=== PATIENT | male | born 1980 ===

== ENCOUNTER 2017-04-15 18:46 | Inpatient (IN) | payer MEDICAID, OTHER ==
[2017-04-15 18:55] VITALS: BMI 33.4
[2017-04-15] MEDS ORDERED: Albuterol-Ipratrop 3 mg / 0.5 (3 ml) UD IH STA (19:02)
[2017-04-15] MEDS ORDERED: cefTRIAXone 1 gm 1 GM/100 ML BAG IVPB STA (19:04)
[2017-04-15 19:16] LABS: BASO # 0.03 K/mm3 (0.0-2.0); BASO % 0.4 % (0.0-3.0); EOS # 0.1 (0.0-0.7); EOS % 0.7 % (1.5-5.0); GRAN # 4.28 (1.4-6.5); HEMOGLOBIN 14.5 g/dL (14.0-18.0); LYMPH # 1.8 (1.2-3.4); LYMPH % 25.7 % (22.0-35.0); MEAN CORPUSCULAR HEMOGLOBIN 31.7 pg (25.0-35.0); MEAN CORPUSCULAR HGB CONC 34.1 g/dl (31.0-37.0); MEAN PLATELET VOLUME 10.4 fl (7.0-11.0); MONO # 0.8 (0.1-0.6); MONO % 11.2 % (1.0-6.0); RBC 4.57 10^6/uL (3.5-6.1); RED CELL DISTRIBUTION WIDTH 12.9 % (11.5-14.5); WHITE BLOOD COUNT 6.9 10^3/ul (4.5-11.0)
--- NOTE | 2017-04-15 19:16 | ED PDOC ---
Arrival/HPI - General Historian: Patient, EMS, Other (calin) EM Caveat: Acuity of Condition - History of Present Illness Time/Duration: Prior to Arrival Symptom Onset: Sudden - General Chief Complaint: Substance Abuse Time Seen by Provider: 04/15/17 18:49 - History of Present Illness Narrative History of Present Illness (Text): 04/15/17 19:13 Patient is a 36 yo male presents to ED via ALS ambulance with history of possible heroin overdose. History obtained by faheemance, reportedly patient has past history of drug abuse, approximately half hour ago she returned to her room and found that patient was unresponsive. Medics state that upon their initial evaluation the patient had agonal respirations and was not responsive. Although patient's fiance "started CPR before we got there" the patient reportedly had strong pulses upon arrival of ALS. Patient was given Narcan intransally "4 times" with response as per medics. Patient upon arrival to the ED states he used "two bags of heroin" and currently feels some dizziness and bodyaches. He denies recent illnesses. Admits that in past he has also abused PCP but currently denies this. (Michelet Castro ) Past Medical History - Infectious Disease Hx of Infectious Diseases: None - Psychiatric Hx Substance Use: Yes - Anesthesia Hx Anesthesia: No Family/Social History Smoking Status: Current Some Days Smoker Hx Alcohol Use: No Hx Substance Use: Yes Substance used: heroine Allergies/Home Meds Allergies/Adverse Reactions: Allergies No Known Allergies Allergy (Verified 04/15/17 18:49) Home Medications: Home Meds Medication Instructions Recorded Confirmed No Known Home Med 04/15/17 04/15/17 Review of Systems - Review of Systems Systems not reviewed;Unavailable: Acuity of Condition Constitutional: absent: Fevers (denies fevers prior to ER visit) ENT: absent: Hearing Changes, Sore Throat, Rhinorrhea Respiratory: SOB, Cough Cardiovascular: absent: Chest Pain, Edema, BHAKTA Gastrointestinal: absent: Abdominal Pain, Constipation, Diarrhea, Nausea, Vomiting Genitourinary Male: absent: Urinary Output Changes Musculoskeletal: Myalgias Skin: absent: Rash Neurological: Dizziness. absent: Headache, Focal Weakness, Gait Changes Endocrine: absent: Polyuria Hemo/Lymphatic: absent: Easy Bleeding Psychiatric: absent: Depression, Suicidal Ideation Physical Exam Vital Signs Reviewed: Yes Temperature: Febrile Blood Pressure: Hypertensive Pulse: Tachycardic Respiratory Rate: Tachypneic Appearance: Positive for: Ill-Appearing Pain Distress: Mild Mental Status: Positive for: Alert and Oriented X 3 Finger Stick Blood Glucose: 254 - Physical Exam Narrative Physical Exam (Text): 04/15/17 19:19 Head: Atraumatic. Normocephalic. Eyes: PERRL. EOMI. Conjunctivae are injected. ENT: Mucous membranes are moist and intact. Oropharynx is clear and symmetric. No tongue laceration. Neck: Supple. Full ROM. No JVD. No lymphadenopathy. Cardiovascular: Tachycardic. Systolic murmur. Distal pulses intact. Pulmonary/Chest: Tachypneic. Chest wall nontender. Mild expiratory wheezing. Abdominal: Soft but mildly non-distended. There is no tenderness. No rebound , guarding, or rigidity. No organomegaly. Good bowel sounds. Back: No CVA tenderness. No midline tenderness. Paraspinal tenderness. Extremities: No edema. No cyanosis. No clubbing. Full range of motion in all extremities. No calf tenderness. Skin: Skin is warm and dry. No petechiae. No purpura. No lacerations. Neurological: Alert, awake, and answering questions appropriately. No slurred speech. No focal motor or sensory deficits. Psychiatric: Good eye contact. Normal interaction, affect, and behavior. Denies suicidal or homicidal ideation. (Michelet Castro) Vital Signs Temp Pulse Resp BP Pulse Ox 04/15/17 23:39 96 H 16 121/73 100 04/15/17 22:59 102.6 F H 04/15/17 22:00 102 H 19 113/65 98 04/15/17 20:59 107 H 19 109/63 98 04/15/17 20:33 110 H 20 117/73 98 04/15/17 19:45 114 H 21 125/75 100 04/15/17 18:46 100.7 F H 132 H 22 122/86 100 Medical Decision Making - Critical Care Critical Care Minutes: 30 minutes - EKG Interpretation Interpreted by ED Physician: Yes Type: 12 lead EKG ED Course and Treatment: 04/15/17 19:24 Patient upon arrival to ED is present with ALS and [facility] personnel, history obtained from medics and fiance. Patient upon arrival is breathing spontaneously and alert and answering questions. He had received Narcan intranasally with return of respirations. ALS states patient was subsequently bagged and oxygen saturations maintained. At no point with prehospital personnel was patient pulseless, despite fiance initiating CPR. Patient denies recent illnesses. He is found to be febrile in ED. Will obtain ABG with lactate, blood cultures, and initia iv antibiotics due to risk of aspiration. Re-evaluatd at 19:15 his heart rate is 115, he is alert, on oxygen saturations are 99%. Abdomen soft and nontender. No acute head or neck trauma noted. Will continue monitoring and serial exams. 04/15/17 20:25 Re-evaluation. States he feels less shaky, Heart rate 110. No respiratory distress. Secondary exam he has palpable lower lumbar pain, no pain with straight leg testing. No deformity noted. No saddle anesthesia. Motor and sensory exam intact. Abnormal labs reviewed with patient including elevated CPK as well as renal insufficiency. Suspect secondary to heroin overdose. IV fluids ordered. Patient will be admitted to hospitalist. (Michelet Castro) - Lab Interpretations Lab Results: 04/15/17 19:00 04/15/17 19:00 Lab Results 04/15/17 19:50: pCO2 45, pO2 72.0 L, HCO3 23.2, ABG pH 7.32 L, ABG Total CO2 24.6, ABG O2 Saturation 97.0, ABG Base Excess -3.1 L, ABG Potassium 2.5 L*, Glucose 115 H, Lactate 1.2, FiO2 100.0, Sodium 141.0, Chloride 108.0 H, Arterial Blood Potassium 2.5 L* 04/15/17 19:04: Influenza Typ A,B (EIA) Negative for flu a/b 04/15/17 19:00: Phosphorus 7.5 H, Magnesium 2.5 H 04/15/17 19:00: Alcohol, Quantitative < 10 04/15/17 19:00: Salicylates < 1 L, Acetaminophen < 10.0 L 04/15/17 19:00: Sodium 135, Potassium 4.3, Chloride 91 L, Carbon Dioxide 27, Anion Gap 21 H, BUN 29 H, Creatinine 1.6 H, Est GFR ( Amer) 59, Est GFR ( Non-Af Amer) 49, Random Glucose 287 H, Calcium 9.2, Total Bilirubin 1.0, AST 95 H, ALT 113 H, Alkaline Phosphatase 59, Lactate Dehydrogenase 802 H, Total Creatine Kinase 2805 H, CK-MB (CK-2) 5.1 H, CK-MB (CK-2) % 0.2 L, Troponin I < 0.01, Total Protein 8.0, Albumin 4.4, Globulin 3.7, Albumin/Globulin Ratio 1.2 04/15/17 19:00: PT 11.7, INR 1.03, APTT 22.0 L 04/15/17 19:00: WBC 6.9, RBC 4.57, Hgb 14.5, Hct 42.5, MCV 93.0, MCH 31.7, MCHC 34.1, RDW 12.9, Plt Count 155, MPV 10.4, Gran % 62.0, Lymph % (Auto) 25.7, [place] % (Auto) 11.2 H, Eos % (Auto) 0.7 L, Baso % (Auto) 0.4, Gran # 4.28, Lymph # ( Auto) 1.8, [place] # (Auto) 0.8 H, Eos # (Auto) 0.1, Baso # (Auto) 0.03 - RAD Interpretation Narrative RAD Interpretations (Text): 04/16/17 14:41 HISTORY: respiratory distress, opiate overdose COMPARISON: No prior. FINDINGS: LUNGS: No active pulmonary disease. PLEURA: No significant pleural effusion identified, no pneumothorax apparent. CARDIOVASCULAR: Normal. OSSEOUS STRUCTURES: No significant abnormalities. VISUALIZED UPPER ABDOMEN: Normal. OTHER FINDINGS: There is a curvilinear line across the upper artery right mino thorax. There are pulmonary markings beyond this. If pneumothorax is suspected, repeat radiograph is recommended. The finding is marked on the study for review. IMPRESSION: Probably no active disease. Please see report for details. Per institutional protocol the study has been marked for review by the physician assistant loan processor. (Jackeline Bella) Radiology Orders: 04/15/17 19:00 CHEST PORTABLE [RAD] Stat - EKG Interpretation EKG Interpretation (Text): 04/15/17 19:28 EKG at 18:49 sinus tachycardia rate of 129 (Michelet Castro) - Medication Orders Current Medication Orders: Acetaminophen (Tylenol 325mg Tab) 650 mg PO Q4 PRN PRN Reason: Fever >100.4 F Albuterol/Ipratropium (Duoneb 3 Mg/0.5 Mg (3 Ml) Ud) 3 ml IH [id number] [facility] Last Admin: 04/16/17 13:59 Dose: 3 ml Heparin Sodium (Porcine) (Heparin) 5,000 units SC Q12 GALE PRN Reason: Protocol Last Admin: 04/16/17 09:30 Dose: 5,000 units Subcutaneous Administrations Document 04/16/17 09:30 KL (Rec: 04/16/17 09:30 KL [id number]) Injection Site MAR Injection Site Right Abdomen Charges for Administration # of Subcutaneous Administrations 1 Sodium Chloride (Sodium Chloride 0.9%) 1,000 mls @ 200 mls/hr IV .Q5H [facility] Last Admin: 04/16/17 11:52 Dose: 200 mls/hr eMAR Start Stop Document 04/16/17 11:52 KL (Rec: 04/16/17 11:52 KL [id number]) Intravenous Solution Start Date 04/16/17 Start Time 11:30 Ampicillin Sodium/Sulbactam (Sodium 3 gm/ Sodium Chloride) 100 mls @ 200 mls/ hr IVPB Q6 GALE PRN Reason: Protocol Last Admin: 04/16/17 11:50 Dose: 200 mls/hr eMAR Start Stop Document 04/16/17 11:50 KL (Rec: 04/16/17 11:51 KL [id number]) Intravenous Solution Start Date 04/16/17 Start Time 11:51 Insulin Human Lispro (Humalog Med) 0 units SC ACHS GALE PRN Reason: Protocol Last Admin: 04/16/17 11:50 Dose: Not Given Non-Admin Reason: Patient Refused MAR Blood Glucose Document 04/16/17 11:50 KL (Rec: 04/16/17 11:50 KL [id number]) Blood Glucose Finger Stick Blood Glucose (70-120) 151 Pantoprazole Sodium (Protonix Inj) 40 mg IVP DAILY [facility] Last Admin: 04/16/17 09:29 Dose: 40 mg IVP Administration Document 04/16/17 09:29 KL (Rec: 04/16/17 09:30 KL [id number]) Charges for Administration # of IVP Administrations 1 Discontinued Medications Albuterol/Ipratropium (Duoneb 3 Mg/0.5 Mg (3 Ml) Ud) 3 ml IH STAT STA Stop: 02/09/18 19:03 Last Admin: 04/15/17 19:22 Dose: 3 ml Ceftriaxone Sodium (Rocephin 1 Gram Ivpb) 1 gm in 100 mls @ 200 mls/hr IVPB ONCE STA PRN Reason: Protocol Stop: 04/15/17 19:33 Last Admin: 04/15/17 19:22 Dose: 200 mls/hr eMAR Start Stop Document 04/15/17 19:22 CNR (Rec: 04/15/17 19:22 CNR [id number]) Intravenous Solution Start Date 04/15/17 Start Time 19:22 End Date 04/15/17 End time 19:52 Total Infusion Time 30 Sodium Chloride (Sodium Chloride 0.9%) 1,000 mls @ 1,000 mls/hr IV .Q1H STA Stop: 04/15/17 20:41 Last Admin: 04/15/17 19:55 Dose: 1,000 mls/hr eMAR Start Stop Document 04/15/17 19:55 CNR (Rec: 04/15/17 19:55 CNR [id number]) Intravenous Solution Start Date 04/15/17 Start Time 19:55 Sodium Chloride (Sodium Chloride 0.9%) 1,000 mls @ 1,000 mls/hr IV .Q1H STA Stop: 04/15/17 22:34 Last Admin: 04/15/17 21:45 Dose: 1,000 mls/hr eMAR Start Stop Document 04/15/17 21:45 CNR (Rec: 04/15/17 21:45 CNR [id number]) Intravenous Solution Start Date 04/15/17 Start Time 21:45 Sodium Chloride (Sodium Chloride 0.9%) 1,000 mls @ 1,000 mls/hr IV .Q1H GALE Stop: 04/15/17 22:44 Last Admin: 04/15/17 22:52 Dose: 1,000 mls/hr eMAR Start Stop Document 04/15/17 22:52 CNR (Rec: 04/15/17 22:52 CNR [id number]) Intravenous Solution Start Date 04/15/17 Start Time 22:52 Methylprednisolone (Solu-Medrol) 60 mg IVP STAT STA Stop: 04/15/17 23:17 Last Admin: 04/15/17 23:30 Dose: 60 mg IVP Administration Document 04/15/17 23:30 CNR (Rec: 04/15/17 23:30 CNR [id number]) Charges for Administration # of IVP Administrations 1 Disposition/Present on Arrival - Present on Arrival History of DVT/PE: No History of Uncontrolled Diabetes: No Urinary Catheter: No History of Decub. Ulcer: No History Surgical Site Infection Following: None - Disposition Disposition: HOSPITALIZED
[2017-04-15 19:27] LABS: ACETAMINOPHEN < 10.0 ug/ml (10.0-20.0); SALICYLATE < 1 mg/dL (2.0-20.0)
[2017-04-15 19:35] LABS: ALB/GLOB RATIO 1.2 (1.1-1.8); ALBUMIN 4.4 g/dL (3.0-4.8); ALT/SGPT 113 U/L (7-56); AST/SGOT 95 U/L (17-59); BLOOD UREA NITROGEN 29 mg/dL (7-21); CALCIUM 9.2 mg/dL (8.4-10.5); GFR AFRICAN-AMERICAN 59; GFR NON-AFRICAN AMERICAN 49
[2017-04-15 19:39] LABS: TROPONIN I < 0.01 ng/mL
[2017-04-15 19:42] LABS: INR 1.03 (0.93-1.08); PROTHROMBIN TIME 11.7 SECONDS (9.4-12.5)
[2017-04-15] MEDS ORDERED: Sodium Chloride 0.9% 1,000 ML IV STA ×2 (19:42→21:35)
[2017-04-15 19:58] LABS: CK MB% 0.2 % (2.5-3.0); CK-MB 5.1 ng/mL (0.0-3.6)
[2017-04-15 20:04] LABS: ARTERIAL BLOOD GAS HCO3 23.2 mmol/L (21-28); ARTERIAL BLOOD GAS PCO2 45 mm/Hg (35-45); ARTERIAL BLOOD GAS PH 7.32 (7.35-7.45); ARTERIAL BLOOD GAS TCO2 24.6 mmol.L (22-28)
--- NOTE | 2017-04-15 21:44 | CP.PCM.HP ---
History of Present Illness - History of Present Illness History of Present Illness: 36 year old male with past medical history of drug abuse brought in by ambulance after being found unconscious by his fiance at home s/p heroine use. History obtained bedside by patients hieu. Hieu states around 6:30 pm today she was in the living room when she heard a "thud" from the bedroom. Prior to that she had heard other noises but did not think anything of it. When she went to the bedroom she found her fiance slumped over between the bed and the dresser. She states the patient did not fall onto the floor fully or hit his head. She states the patient was unresponsive. She called 911 and proceeded to perform chest compressions. Ambulance arrived patient was given narcan in field and brought into the hospital. Patient was arousable with sternal rub but appears somnolent. He states he used to bags of heroine, last use of heroine before this was a "while ago". Patient does recall what happened. Patient denies any chest pain, shortness of breath, headache, nausea, vomiting, fever, chills, cough, or any other complaints at this time. PMH: denies PSH: denies Allergies: NKDA Meds: none Social: pack a day tobacco for past 20 years, social alcohol use, admits to heroine, crack and cocaine use Family hx: denies Present on Admission - Present on Admission Any Indicators Present on Admission: No Review of Systems - Constitutional Constitutional: absent: Anorexia, Chills, Fever - EENT Eyes: absent: Blurred Vision, Change in Vision Nose/Mouth/Throat: Epistaxis. absent: Nasal Congestion, Nasal Discharge - Cardiovascular Cardiovascular: absent: Chest Pain, Dyspnea - Respiratory Respiratory: absent: Cough, Dyspnea, Chest Congestion, Excessive Mucous Production - Gastrointestinal Gastrointestinal: absent: Abdominal Pain, Diarrhea, Nausea, Vomiting - Musculoskeletal Musculoskeletal: absent: Arthralgias, Back Pain, Numbness, Tingling - Integumentary Integumentary: absent: Swelling, Wounds - Neurological Neurological: absent: Disequilibrium, Dizziness, Numbness, Focal Weakness, Memory Loss, Syncope, Weakness Past Patient History - Infectious Disease Hx of Infectious Diseases: None - Past Social History Smoking Status: Current Some Days Smoker - PSYCHIATRIC Hx Substance Use: Yes - ANESTHESIA Hx Anesthesia: No Meds Allergies/Adverse Reactions: Allergies Allergy/AdvReac Type Severity Reaction Status Date / Time No Known Allergies Allergy Verified 04/15/17 18:49 Physical Exam - Constitutional Appears: No Acute Distress Additional comments: somnolent - Head Exam Head Exam: ATRAUMATIC, NORMAL INSPECTION, NORMOCEPHALIC - Eye Exam Eye Exam: Conjunctival injection, EOMI, PERRL - ENT Exam ENT Exam: Mucous Membranes Moist Additional comments: dried blood around nose - Neck Exam Neck exam: Negative for: Lymphadenopathy, Tenderness - Respiratory Exam Respiratory Exam: Wheezes Additional comments: tachypnic - Cardiovascular Exam Cardiovascular Exam: Tachycardia, +S1, +S2 - GI/Abdominal Exam GI & Abdominal Exam: Normal Bowel Sounds. absent: Distended, Tenderness - Extremities Exam Extremities exam: Positive for: pedal pulses present. Negative for: pedal edema - Neurological Exam Neurological exam: Alert, Oriented x3 - Skin Skin Exam: Normal Color Results - Vital Signs Recent Vital Signs: Last Vital Signs Temp 100.7 F H 04/15/17 18:46 Pulse 132 H 04/15/17 18:46 Resp 22 04/15/17 18:46 BP 122/86 04/15/17 18:46 Pulse Ox 100 04/15/17 18:46 - Labs Result Diagrams: 04/15/17 19:00 04/15/17 19:00 Labs: Laboratory Results - last 24 hr 04/15/17 04/15/17 04/15/17 19:00 19:00 19:00 WBC 6.9 RBC 4.57 Hgb 14.5 Hct 42.5 MCV 93.0 MCH 31.7 MCHC 34.1 RDW 12.9 Plt Count 155 MPV 10.4 Gran % 62.0 Lymph % (Auto) 25.7 [place] % (Auto) 11.2 H Eos % (Auto) 0.7 L Baso % (Auto) 0.4 Gran # 4.28 Lymph # (Auto) 1.8 Arthur # (Auto) 0.8 H Eos # (Auto) 0.1 Baso # (Auto) 0.03 PT 11.7 INR 1.03 APTT 22.0 L pCO2 pO2 HCO3 ABG pH ABG Total CO2 ABG O2 Saturation ABG Base Excess ABG Potassium Glucose Lactate FiO2 Sodium 135 Potassium 4.3 Chloride 91 L Carbon Dioxide 27 Anion Gap 21 H BUN 29 H Creatinine 1.6 H Est GFR ( Amer) 59 Est GFR (Non-Af Amer) 49 Random Glucose 287 H Calcium 9.2 Total Bilirubin 1.0 AST 95 H ALT 113 H Alkaline Phosphatase 59 Lactate Dehydrogenase 802 H Total Creatine Kinase 2805 H CK-MB (CK-2) 5.1 H CK-MB (CK-2) % 0.2 L Troponin I < 0.01 Total Protein 8.0 Albumin 4.4 Globulin 3.7 Albumin/Globulin Ratio 1.2 Arterial Blood Potassium Salicylates Acetaminophen Alcohol, Quantitative Influenza Typ A,B (EIA) 04/15/17 04/15/17 04/15/17 19:00 19:00 19:04 WBC RBC Hgb Hct MCV MCH MCHC RDW Plt Count MPV Gran % Lymph % (Auto) Arthur % (Auto) Eos % (Auto) Baso % (Auto) Gran # Lymph # (Auto) Arthur # (Auto) Eos # (Auto) Baso # (Auto) PT INR APTT pCO2 pO2 HCO3 ABG pH ABG Total CO2 ABG O2 Saturation ABG Base Excess ABG Potassium Glucose Lactate FiO2 Sodium Potassium Chloride Carbon Dioxide Anion Gap BUN Creatinine Est GFR ( Amer) Est GFR (Non-Af Amer) Random Glucose Calcium Total Bilirubin AST ALT Alkaline Phosphatase Lactate Dehydrogenase Total Creatine Kinase CK-MB (CK-2) CK-MB (CK-2) % Troponin I Total Protein Albumin Globulin Albumin/Globulin Ratio Arterial Blood Potassium Salicylates < 1 L Acetaminophen < 10.0 L Alcohol, Quantitative < 10 Influenza Typ A,B (EIA) Negative for flu a/b 04/15/17 19:50 WBC RBC Hgb Hct MCV MCH MCHC RDW Plt Count MPV Gran % Lymph % (Auto) Arthur % (Auto) Eos % (Auto) Baso % (Auto) Gran # Lymph # (Auto) Arthur # (Auto) Eos # (Auto) Baso # (Auto) PT INR APTT pCO2 45 pO2 72.0 L HCO3 23.2 ABG pH 7.32 L ABG Total CO2 24.6 ABG O2 Saturation 97.0 ABG Base Excess -3.1 L ABG Potassium 2.5 L* Glucose 115 H Lactate 1.2 FiO2 100.0 Sodium 141.0 Potassium Chloride 108.0 H Carbon Dioxide Anion Gap BUN Creatinine Est GFR ( Amer) Est GFR (Non-Af Amer) Random Glucose Calcium Total Bilirubin AST ALT Alkaline Phosphatase Lactate Dehydrogenase Total Creatine Kinase CK-MB (CK-2) CK-MB (CK-2) % Troponin I Total Protein Albumin Globulin Albumin/Globulin Ratio Arterial Blood Potassium 2.5 L* Salicylates Acetaminophen Alcohol, Quantitative Influenza Typ A,B (EIA) Assessment & Plan - Assessment and Plan (Free Text) Assessment: 36 year old male with past medical history of drug abuse brought in by ambulance after being found unconscious by his fiance at home s/p heroine use. Plan: 1. Heroine Overdose -patient somnolent, opens eyes to sternal rub, oriented x3 -UDS pending -EKG pending official read, sinus tachycardia -VBG ph 7.32, repeat in AM -initial trop negative -Chest xray pending official read, no infiltrates or consolidation -blood cultures, urine cultures pending -seizure precautions -fall precautions -neuro checks -aspiration precautions -temp 100.7 -Unasyn to prevent infection from aspiration -EKG in AM -CMP in AM -continue to monitor mental status -mag and phosphate pending 2. Elevated LFTs -likely secondary to drug use -hepatitis panel pending -avoid hepatotoxic drugs 3. Elevated CK -CK 2805 -repeat in AM -likely secondary to drug overdose -2 L NS bolus -NS @200 -UA pending -continue to monitor GI/DVT -protonix -Heparin SC
[2017-04-15] MEDS ORDERED: Sodium Chloride 0.9% 1,000 ML IV SCH (21:45)
[2017-04-15 22:00] LABS: MAGNESIUM 2.5 mg/dL (1.7-2.2)
[2017-04-15 22:47] LABS: URINE BILIRUBIN NEGATIVE (NEGATIVE); URINE BLOOD NEGATIVE (NEGATIVE); URINE GLUCOSE (UA) 250 mg/dL (NEGATIVE); URINE LEUKOCYTE ESTERASE NEGATIVE Leu/uL (NEGATIVE); URINE NITRATE NEGATIVE (NEGATIVE); URINE PROTEIN 30 mg/dL (<30 mg/dL); URINE UROBILINOGEN 0.2 E.U./dL (<1 E.U./dL)
[2017-04-15] MEDS: Sodium Chloride 0.9% 1,000 ML IV SCH (22:49)
[2017-04-15 22:52] LABS: URINE APPEARANCE CLEAR (CLEAR); URINE COLOR YELLOW (YELLOW)
[2017-04-15 23:01] LABS: URINE BACTERIA MANY (NEG); URINE RBC 0 - 2 /hpf (0-2)
[2017-04-15] MEDS ORDERED: MethylPREDNISolone 40 mg Vial IVP STA (23:16)
[2017-04-15] MEDS: Albuterol-Ipratrop 3 mg / 0.5 (3 ml) UD IH SCH (23:30)
[2017-04-16] MEDS: Sodium Chloride 0.9% 1,000 ML IV SCH ×7 (00:18→23:07)
[2017-04-16] MEDS: Albuterol-Ipratrop 3 mg / 0.5 (3 ml) UD IH SCH ×6 (02:00→19:21)
[2017-04-16 08:14] LABS: GRAN % 88.8 % (50.0-68.0); HEMOGLOBIN 11.4 g/dL (14.0-18.0); LYMPH # 0.6 (1.2-3.4); MEAN CELL VOLUME 92.8 fl (80.0-105.0); MEAN CORPUSCULAR HEMOGLOBIN 30.4 pg (25.0-35.0); MEAN CORPUSCULAR HGB CONC 32.8 g/dl (31.0-37.0); MEAN PLATELET VOLUME 10.4 fl (7.0-11.0); MONO # 0.4 (0.1-0.6); MONO % 4.2 % (1.0-6.0); RBC 3.75 10^6/uL (3.5-6.1); RED CELL DISTRIBUTION WIDTH 13.3 % (11.5-14.5)
[2017-04-16 08:39] LABS: ALB/GLOB RATIO 1.1 (1.1-1.8); ALBUMIN 3.2 g/dL (3.0-4.8); ALT/SGPT 81 U/L (7-56); AST/SGOT 70 U/L (17-59); BLOOD UREA NITROGEN 19 mg/dL (7-21); CALCIUM 8.1 mg/dL (8.4-10.5); GFR AFRICAN-AMERICAN > 60; GFR NON-AFRICAN AMERICAN > 60
[2017-04-16 09:12] LABS: CK-MB 3.6 ng/mL (0.0-3.6)
[2017-04-16] MEDS: Insulin Lispro (humaLOG) MEDIUM Coverage SC SCH ×4 (09:21→23:10)
--- NOTE | 2017-04-16 10:08 | RAD ---
HISTORY: respiratory distress, opiate overdose COMPARISON: No prior. FINDINGS: LUNGS: No active pulmonary disease. PLEURA: No significant pleural effusion identified, no pneumothorax apparent. CARDIOVASCULAR: Normal. OSSEOUS STRUCTURES: No significant abnormalities. VISUALIZED UPPER ABDOMEN: Normal. OTHER FINDINGS: There is a curvilinear line across the upper artery right mino thorax. There are pulmonary markings beyond this. If pneumothorax is suspected, repeat radiograph is recommended. The finding is marked on the study for review. IMPRESSION: Probably no active disease. Please see report for details. Per institutional protocol the study has been marked for review by the physician real estate assistant.
[2017-04-16 12:18] LABS: HEPATITIS B SURFACE AG Negative (NEGATIVE)
[2017-04-16 12:24] LABS: HEPATITIS A IGM NEGATIVE (NEGATIVE); HEPATITIS B CORE AB NEGATIVE (NEGATIVE)
[2017-04-16 14:25] LABS: HEPATITIS C ANTIBODY REACTIVE (NEGATIVE)
--- NOTE | 2017-04-16 16:39 | CARD ---
APPROVED REPORT EKG Measurement Heart [id number] <Conclusion> Normal sinus rhythm Normal ECG
--- NOTE | 2017-04-16 16:48 | CARD ---
APPROVED REPORT EKG Measurement Heart [id number] <Conclusion> Sinus tachycardia Otherwise normal ECG
--- NOTE | 2017-04-16 16:56 | CP.PCM.PN ---
<Edilson Barton - Last Filed: 04/16/17 16:53> Subjective - Date & Time of Evaluation Date of Evaluation: 04/16/17 Time of Evaluation: 16:53 - Subjective Subjective: Medicine Progress Note: Patient seen and assessed at bedside. No acute events since admission reported by nursing staff or patient. Patient is without complaints at this time, including fever, chills, headache, chest pain, palpitations, SOB, cough, abdominal pain, N/V/D/C, urinary symptoms, or any numbness/tingling/weakness of any extremity. Objective - Vital Signs/Intake and Output Vital Signs (last 24 hours): Temp Pulse Resp BP Pulse Ox 99.3 F 78 16 105/57 L 95 04/16/17 12:00 04/16/17 12:00 04/16/17 12:00 04/16/17 12:00 04/16/17 06:00 Intake and Output: 04/16/17 04/16/17 06:59 18:59 Intake Total 1560 Output Total 1075 Balance 485 - Medications Medications: Current Medications Acetaminophen (Tylenol 325mg Tab) 650 mg PO Q4 PRN PRN Reason: Fever >100.4 F Albuterol/Ipratropium (Duoneb 3 Mg/0.5 Mg (3 Ml) Ud) 3 ml IH [id number] [facility] Last Admin: 04/16/17 13:59 Dose: 3 ml Heparin Sodium (Porcine) (Heparin) 5,000 units SC Q12 GALE PRN Reason: Protocol Last Admin: 04/16/17 09:30 Dose: 5,000 units Sodium Chloride (Sodium Chloride 0.9%) 1,000 mls @ 200 mls/hr IV .Q5H [facility] Last Admin: 04/16/17 11:52 Dose: 200 mls/hr Ampicillin Sodium/Sulbactam (Sodium 3 gm/ Sodium Chloride) 100 mls @ 200 mls/ hr IVPB Q6 GALE PRN Reason: Protocol Last Admin: 04/16/17 11:50 Dose: 200 mls/hr Insulin Human Lispro (Humalog Med) 0 units SC ACHS GALE PRN Reason: Protocol Last Admin: 04/16/17 11:50 Dose: Not Given Pantoprazole Sodium (Protonix Inj) 40 mg IVP DAILY [facility] Last Admin: 04/16/17 09:29 Dose: 40 mg - Labs Labs: 04/16/17 07:00 04/16/17 07:00 PT 11.7 SECONDS (9.4-12.5) 04/15/17 19:00 INR 1.03 (0.93-1.08) 04/15/17 19:00 APTT 22.0 Seconds (25.1-36.5) L 04/15/17 19:00 - Constitutional Appears: Non-toxic, No Acute Distress - Head Exam Head Exam: ATRAUMATIC, NORMAL INSPECTION, NORMOCEPHALIC - Eye Exam Eye Exam: EOMI, Normal appearance, PERRL - ENT Exam ENT Exam: Mucous Membranes Moist, Normal Exam - Neck Exam Neck Exam: Full ROM, Normal Inspection. absent: Lymphadenopathy - Respiratory Exam Respiratory Exam: Clear to Ausculation Bilateral, NORMAL BREATHING PATTERN - Cardiovascular Exam Cardiovascular Exam: REGULAR RHYTHM, +S1, +S2. absent: Murmur - GI/Abdominal Exam GI & Abdominal Exam: Soft, Normal Bowel Sounds. absent: Tenderness - Extremities Exam Extremities Exam: Full ROM, Normal Capillary Refill, Normal Inspection. absent : Calf Tenderness, Joint Swelling, Pedal Edema, Tenderness - Back Exam Back Exam: NORMAL INSPECTION - Neurological Exam Neurological Exam: Alert, Awake, CN II-XII Intact, Normal Gait, Oriented x3 - Psychiatric Exam Psychiatric exam: Normal Affect, Normal Mood - Skin Skin Exam: Dry, Intact, Normal Color, Warm Assessment and Plan - Assessment and Plan (Free Text) Assessment: 36 year old male with a past medical history significant for heroin abuse who was brought in by ambulance after being found unconscious by his fiance at home s/p heroine use. Plan: 1. Heroin Abuse s/p Heroin Overdose -Currently afebrile, HDS, alert and oriented to person, place, time and event -EKG showing NSR at 78bpm -HIV, UDS, repeat ABG, Blood and Urine cultures pending -Hepatitis C AB reactive, Viral RNA pending -Continue Unasyn for empiric coverage of aspiration PNA -Continue Duonebs [id number] -Continue Tylenol PRN for fever -Continue Neurochecks -Aspiration, Fall and Seizure precautions -ID consulted, all recommendations appreciated 2. Rhabdomyelitis -CK trending down and currently >1600 -Liver Enzymes and BUN/Cr trending down -Continue NS at 200mls/hr 3. Hyperglycemia -SSI-Med and Accuchecks ACHS GI Prophylaxis: Protonix DVT Prophylaxis: Heparin Patient seen and case discussed with attending, Dr. Giraldo. <Isabel Giraldo - Last Filed: 04/17/17 15:31> Objective - Vital Signs/Intake and Output Vital Signs (last 24 hours): Temp Pulse Resp BP Pulse Ox 99.3 F 84 20 123/70 95 04/17/17 13:01 04/17/17 12:00 04/17/17 12:00 04/17/17 12:00 04/17/17 06:00 Intake and Output: 04/17/17 04/17/17 06:59 18:59 Intake Total 2660 Output Total 3300 Balance -640 - Medications Medications: Current Medications Acetaminophen (Tylenol 325mg Tab) 650 mg PO Q4 PRN PRN Reason: Fever >100.4 F Last Admin: 04/17/17 12:01 Dose: 650 mg Albuterol/Ipratropium (Duoneb 3 Mg/0.5 Mg (3 Ml) Ud) 3 ml IH [id number] [facility] Last Admin: 04/17/17 11:37 Dose: 3 ml Guaifenesin (Robitussin) 100 mg PO Q4H PRN PRN Reason: Cough Last Admin: 04/17/17 02:29 Dose: 100 mg Heparin Sodium (Porcine) (Heparin) 5,000 units SC Q12 GALE PRN Reason: Protocol Last Admin: 04/17/17 09:55 Dose: 5,000 units Ampicillin Sodium/Sulbactam (Sodium 3 gm/ Sodium Chloride) 100 mls @ 200 mls/ hr IVPB Q6 GALE PRN Reason: Protocol Last Admin: 04/17/17 12:02 Dose: 200 mls/hr Sodium Chloride (Sodium Chloride 0.9%) 1,000 mls @ 100 mls/hr IV .Q10H [facility] Last Admin: 04/17/17 14:30 Dose: 100 mls/hr Insulin Human Lispro (Humalog Med) 0 units SC ACHS GALE PRN Reason: Protocol Last Admin: 04/17/17 12:02 Dose: Not Given Pantoprazole Sodium (Protonix Inj) 40 mg IVP DAILY [facility] Last Admin: 04/17/17 09:54 Dose: 40 mg - Labs Labs: 04/17/17 07:00 02/11/18 07:00 PT 11.7 SECONDS (9.4-12.5) 04/15/17 19:00 INR 1.03 (0.93-1.08) 04/15/17 19:00 APTT 22.0 Seconds (25.1-36.5) L 04/15/17 19:00 Attending/Attestation - Attestation I have personally seen and examined this patient.: Yes I have fully participated in the care of the patient.: Yes I have reviewed all pertinent clinical information, including history, physical exam and plan: Yes Notes (Text): 04/17/17 15:27 Patient was seen and examined with medical center director. 36 year old male with past medical history of drug abuse brought in by ambulance after being found unconscious by his fiance at home s/p heroine use. Mental status improved after Narcain.Patient is found to have Rhabdomylosis, fever likely due to aspiration Pneumonia and abnormal LFT, hepatitis panel is positive for hepatitric C.We will continue IV fluid, will follow up electrolyte, CK level and BUN and creatinin. We will continue Unasyn for aspiration Pneumonia.We will follow up cultures. We will watch for withdrawal. Prognosis is guarded.
--- NOTE | 2017-04-16 20:11 | CP.PCM.CON ---
History of Present Illness - History of Present Illness History of Present Illness: Infectious Disease Consultation: April 16, 2017 36 yo male with history of heroin abuse. At home the patient's fiance heard a loud thud from the bedroom and was found unresponsive and slumped over a space between the bed and the dresser. EMS administered Narcan in the field. PMHx: Denied PSHx: Denied Allergies: NKDA Social Hx: 1 ppd tobacco for 24 years Social EtOH Crack, Cocaine, and heroin use. Active Medications Acetaminophen (Tylenol 325mg Tab) 650 mg PO Q4 PRN PRN Reason: Fever >100.4 F Albuterol/Ipratropium (Duoneb 3 Mg/0.5 Mg (3 Ml) Ud) 3 ml IH [id number] [facility] Last Admin: 04/16/17 19:21 Dose: Not Given Heparin Sodium (Porcine) (Heparin) 5,000 units SC Q12 GALE PRN Reason: Protocol Last Admin: 04/16/17 09:30 Dose: 5,000 units Sodium Chloride (Sodium Chloride 0.9%) 1,000 mls @ 200 mls/hr IV .Q5H [facility] Last Admin: 04/16/17 17:40 Dose: 200 mls/hr Ampicillin Sodium/Sulbactam (Sodium 3 gm/ Sodium Chloride) 100 mls @ 200 mls/ hr IVPB Q6 GALE PRN Reason: Protocol Last Admin: 04/16/17 17:35 Dose: 200 mls/hr Insulin Human Lispro (Humalog Med) 0 units SC ACHS GALE PRN Reason: Protocol Last Admin: 04/16/17 17:36 Dose: Not Given Pantoprazole Sodium (Protonix Inj) 40 mg IVP DAILY [facility] Last Admin: 04/16/17 09:29 Dose: 40 mg Family Hx: none given ROS: Fevers on admission, AMS, LOC No chest pain, abdominal pain, melena, hematuria, hematemesis, hematochezia, depression, anxiety, diarrhea, headaches, dizziness. Past Patient History - Infectious Disease Hx of Infectious Diseases: None - Past Social History Smoking Status: Never Smoked - CARDIAC Hx Cardiac Disorders: No Hx Angina: No Hx Cardia Arrhythmia: No Hx Circulatory Problems: No Hx Congestive Heart Failure: No Hx Heart Murmur: No Hx Heart Transplant: No Hx Hypercholesterolemia: No Hx Hypertension: No Hx Internal Defibrillator: No Hx Mitral Valve Prolapse: No Hx Pacemaker: No Hx Peripheral Edema: No Hx Peripheral Vascular Disease: No - PULMONARY Hx Respiratory Disorders: No Hx Asthma: No Hx Bronchitis: No Hx Chronic Obstructive Pulmonary Disease (COPD): No Hx Emphysema: No Hx Pneumonia: No Hx Respiratory Aspiration: No Hx Respiratory Tract Infection: No Hx Sleep Apnea: No Hx Tuberculosis: No - NEUROLOGICAL Hx Neurological Disorder: No Hx Alzheimer's Disease: No HX Cerebrovascular Accident: No Hx Dementia: No Hx Dizziness: No Hx Meningitis: No Hx Migraine: No Hx Parkinson's Disease: No Hx Seizures: No Hx Transient Ischemic Attacks (TIA): No - HEENT Hx HEENT Problems: No Hx Blind: No Hx Cataracts: No Hx Deafness: No Hx Difficulty Chewing: No Hx Epistaxis: No Hx Glaucoma: No Hx Macular Degeneration: No - RENAL Hx Chronic Kidney Disease: No Hx Dialysis: No Hx Kidney Stones: No Hx Neurogenic Bladder: No Hx Pyelonephritis: No Hx Renal (Kidney) Cancer: No Hx Renal Failure: No - ENDOCRINE/METABOLIC Hx Endocrine Disorders: No Hx Adrenal Cancer: No Hx Diabetes Insipidus: No Hx Diabetes Mellitus Type 1: No Hx Diabetes Mellitus Type 2: No Hx Hyperthyroidism: No Hx Hypothyroidism: No Hx Systemic Lupus Erythematosus: No - HEMATOLOGICAL/ONCOLOGICAL Hx Blood Disorders: No Hx AIDS: No Hx Anemia: No Hx Cancer: No Hx Chemotherapy: No Hx Cirrhosis: No Hx Hemophilia: No Hx Hepatitis A: No Hx Hepatitis B: No Hx Hepatitis C: No Hx Human Immunodeficiency Virus (HIV): No Hx Metastesis: No Hx Shingles: No Hx Sickle Cell Disease: No Hx Unexplained Bleeding: No - INTEGUMENTARY Hx Dermatological Problems: No Hx Basil Cell: No Hx Eczema: No Hx Melanoma: No Hx Psoriasis: No Hx Squamous Cell: No - MUSCULOSKELETAL/RHEUMATOLOGICAL Hx Musculoskeletal Disorders: No Hx Arthritis: No Hx Back Pain: No Hx Degenerative Joint Disease: No Hx Falls: No Hx Fractures: No Hx Gout: No Hx Herniated Disk: No Hx Myasthenia Gravis: No Hx Osteoarthritis: No Hx Osteomyelitis: No Hx Osteoporosis: No Hx Rhabdomyolysis: No Hx Spinal Stenosis: No Hx Unsteady Gait: No - GASTROINTESTINAL Hx Gastrointestinal Disorders: No Hx Colostomy: No Hx Crohn's Disease: No Hx Diverticulitis: No Hx Gall Bladder Disease: No Hx Gastroesophageal Reflux: No Hx Ileostomy: No Hx Liver Failure: No Hx Pancreatitis: No HX Swallowing Problems: No Hx Ulcer: No - GENITOURINARY/GYNECOLOGICAL Hx Genitourinary Disorders: No Hx Hematuria: No Hx Incontinence: No Hx Prostate Problems: No Hx Sexually Transmitted Disorders: No Hx Urinary Tract Infection: No - PSYCHIATRIC Hx Psychophysiologic Disorder: Yes (Substance abuse Heroin) Hx Anxiety: No Hx Bipolar Disorder: No Hx Depression: No Hx Emotional Abuse: No Hx Hallucinations: No Hx Panic Symptoms: No Hx Paranoia: No Hx Post Traumatic Stress Disorder: No Hx Psychosis: No Hx Physical Abuse: No Hx Schizophrenia: No Hx Sexual Abuse: No Other/Comment: Released from senior care 04/14/17 as per patient and " over did it with the heroin." - SURGICAL HISTORY Hx Surgeries: No Hx Amputation: No Hx Appendectomy: No Hx Cardiac Catheterization: No Hx Cholecystectomy: No Hx Coronary Stent: No Hx Gastric Bypass Surgery: No Hx Hysterectomy: No Hx Joint Replacement: No Hx Kidney Transplant: No Hx Liver Transplant: No Hx Mastectomy: No Hx Musculoskeletal Surgery: No Hx Open Heart Surgery: No Hx Orthopedic Surgery: No Hx Splenectomy: No Hx Valve Replacement: No - ANESTHESIA Hx Anesthesia: No Meds Allergies/Adverse Reactions: Allergies Allergy/AdvReac Type Severity Reaction Status Date / Time No Known Allergies Allergy Verified 04/15/17 18:49 - Medications Medications: Current Medications Acetaminophen (Tylenol 325mg Tab) 650 mg PO Q4 PRN PRN Reason: Fever >100.4 F Albuterol/Ipratropium (Duoneb 3 Mg/0.5 Mg (3 Ml) Ud) 3 ml IH [id number] [facility] Last Admin: 04/16/17 19:21 Dose: Not Given Heparin Sodium (Porcine) (Heparin) 5,000 units SC Q12 GALE PRN Reason: Protocol Last Admin: 04/16/17 09:30 Dose: 5,000 units Sodium Chloride (Sodium Chloride 0.9%) 1,000 mls @ 200 mls/hr IV .Q5H [facility] Last Admin: 04/16/17 17:40 Dose: 200 mls/hr Ampicillin Sodium/Sulbactam (Sodium 3 gm/ Sodium Chloride) 100 mls @ 200 mls/ hr IVPB Q6 [facility]ALE PRN Reason: Protocol Last Admin: 04/16/17 17:35 Dose: 200 mls/hr Insulin Human Lispro (Humalog Med) 0 units SC ACHS [facility]ALE PRN Reason: Protocol Last Admin: 04/16/17 17:36 Dose: Not Given Pantoprazole Sodium (Protonix Inj) 40 mg IVP DAILY [facility] Last Admin: 04/16/17 09:29 Dose: 40 mg Physical Exam - Constitutional Appears: No Acute Distress Additional comments: somnolent - Head Exam Head Exam: ATRAUMATIC, NORMOCEPHALIC - Eye Exam Eye Exam: EOMI, PERRL Pupil Exam: NORMAL ACCOMODATION, PERRL - ENT Exam ENT Exam: Mucous Membranes Moist Additional comments: dried blood around nares. - Neck Exam Neck exam: Positive for: Normal Inspection. Negative for: Lymphadenopathy - Respiratory Exam Respiratory Exam: Wheezes. absent: Rales, Rhonchi Additional comments: Tachypnea - Cardiovascular Exam Cardiovascular Exam: Tachycardia, RRR, +S1, +S2 - GI/Abdominal Exam GI & Abdominal Exam: Normal Bowel Sounds, Soft. absent: Distended, Tenderness - Extremities Exam Extremities exam: Positive for: full ROM, normal inspection - Neurological Exam Neurological exam: Alert, CN II-XII Intact, Oriented x3 - Skin Skin Exam: Intact, Normal Color Results - Vital Signs Recent Vital Signs: Last Vital Signs Temp 98.5 F 04/16/17 18:00 Pulse 90 04/16/17 18:00 Resp 20 04/16/17 18:00 BP 119/53 L 04/16/17 18:00 Pulse Ox 95 04/16/17 06:00 - Labs Result Diagrams: 04/16/17 07:00 04/16/17 07:00 Labs: Laboratory Results - last 24 hr 04/15/17 04/15/17 04/16/17 21:50 22:37 07:00 WBC RBC Hgb Hct MCV MCH MCHC RDW Plt Count MPV Gran % Lymph % (Auto) [place] % (Auto) Eos % (Auto) Baso % (Auto) Gran # Lymph # (Auto) [place] # (Auto) Eos # (Auto) Baso # (Auto) Sodium 139 Potassium 4.6 Chloride 103 Carbon Dioxide 24 Anion Gap 16 BUN 19 Creatinine 1.0 Est GFR ( Amer) > 60 Est GFR (Non-Af Amer) > 60 POC Glucose (mg/dL) Random Glucose 113 H Calcium 8.1 L Total Bilirubin 0.5 AST 70 H D ALT 81 H Alkaline Phosphatase 39 Total Creatine Kinase > 1600 H CK-MB (CK-2) 3.6 CK-MB (CK-2) % Cancelled Total Protein 6.1 Albumin 3.2 Globulin 3.0 Albumin/Globulin Ratio 1.1 Procalcitonin Urine Color Yellow Urine Appearance Clear Urine pH 6.0 Ur Specific [place] 1.025 Urine Protein 30 H Urine Glucose (UA) 250 H Urine Ketones Trace H Urine Blood Negative Urine Nitrate Negative Urine Bilirubin Negative Urine Urobilinogen 0.2 Ur Leukocyte Esterase Negative Urine RBC 0 - 2 Urine WBC 2 - 5 Ur Epithelial Cells 1 - 3 Urine Bacteria Many Hepatitis A IgM Ab Negative Hep Bs Antigen Negative Hep B Core IgM Ab Negative Hepatitis C Antibody Reactive 04/16/17 04/16/17 04/16/17 07:00 07:00 08:36 WBC 9.0 D RBC 3.75 Hgb 11.4 L D Hct 34.8 L MCV 92.8 MCH 30.4 MCHC 32.8 RDW 13.3 Plt Count 131 MPV 10.4 Gran % 88.8 H Lymph % (Auto) 7.0 L [place] % (Auto) 4.2 Eos % (Auto) 0.0 L Baso % (Auto) 0.0 Gran # 8.00 H Lymph # (Auto) 0.6 L [place] # (Auto) 0.4 Eos # (Auto) 0.0 Baso # (Auto) 0.00 Sodium Potassium Chloride Carbon Dioxide Anion Gap BUN Creatinine Est GFR ( Amer) Est GFR (Non-Af Amer) POC Glucose (mg/dL) 132 H Random Glucose Calcium Total Bilirubin AST ALT Alkaline Phosphatase Total Creatine Kinase CK-MB (CK-2) CK-MB (CK-2) % Total Protein Albumin Globulin Albumin/Globulin Ratio Procalcitonin 0.18 L Urine Color Urine Appearance Urine pH Ur Specific [place] Urine Protein Urine Glucose (UA) Urine Ketones Urine Blood Urine Nitrate Urine Bilirubin Urine Urobilinogen Ur Leukocyte Esterase Urine RBC Urine WBC Ur Epithelial Cells Urine Bacteria Hepatitis A IgM Ab Hep Bs Antigen Hep B Core IgM Ab Hepatitis C Antibody 04/16/17 04/16/17 11:38 16:04 WBC RBC Hgb Hct MCV MCH MCHC RDW Plt Count MPV Gran % Lymph % (Auto) [place] % (Auto) Eos % (Auto) Baso % (Auto) Gran # Lymph # (Auto) [place] # (Auto) Eos # (Auto) Baso # (Auto) Sodium Potassium Chloride Carbon Dioxide Anion Gap BUN Creatinine Est GFR ( Amer) Est GFR (Non-Af Amer) POC Glucose (mg/dL) 151 H 187 H Random Glucose Calcium Total Bilirubin AST ALT Alkaline Phosphatase Total Creatine Kinase CK-MB (CK-2) CK-MB (CK-2) % Total Protein Albumin Globulin Albumin/Globulin Ratio Procalcitonin Urine Color Urine Appearance Urine pH Ur Specific [place] Urine Protein Urine Glucose (UA) Urine Ketones Urine Blood Urine Nitrate Urine Bilirubin Urine Urobilinogen Ur Leukocyte Esterase Urine RBC Urine WBC Ur Epithelial Cells Urine Bacteria Hepatitis A IgM Ab Hep Bs Antigen Hep B Core IgM Ab Hepatitis C Antibody Assessment & Plan - Assessment and Plan (Free Text) Assessment: 36 yo male with AMS after heroin use at home. Some improvement with Narcan administration. Hepatitis C antibody positive. Urine drug screen pending. Screen for HIV and Hepatitis C Quantitative. Fevers on admission. Unclear origin... may be from drug use and possible withdrawal. Supportive care. On Unasyn for antibiotic coverage which is acceptable. Thank you for allowing me to participate in the care of the patient, we will follow with you.
[2017-04-17] MEDS: Albuterol-Ipratrop 3 mg / 0.5 (3 ml) UD IH SCH ×7 (01:00→19:49)
[2017-04-17] MEDS ORDERED: Acetylcysteine 20% Inhal Soln (4ml) IH STA (02:16)
[2017-04-17] MEDS: guaiFENesin 100 mg/5 ml Syrup UD PO PRN (02:29)
[2017-04-17] MEDS: Sodium Chloride 0.9% 1,000 ML IV SCH ×2 (05:11→09:54)
[2017-04-17 07:36] LABS: BASO # 0.01 K/mm3 (0.0-2.0); BASO % 0.1 % (0.0-3.0); EOS % 0.1 % (1.5-5.0); GRAN # 5.18 (1.4-6.5); GRAN % 77.5 % (50.0-68.0); HEMOGLOBIN 11.4 g/dL (14.0-18.0); LYMPH # 1.1 (1.2-3.4); LYMPH % 16.3 % (22.0-35.0); MEAN CELL VOLUME 93.1 fl (80.0-105.0); MEAN CORPUSCULAR HEMOGLOBIN 30.4 pg (25.0-35.0); MEAN CORPUSCULAR HGB CONC 32.7 g/dl (31.0-37.0); MEAN PLATELET VOLUME 10.6 fl (7.0-11.0); MONO # 0.4 (0.1-0.6); RBC 3.75 10^6/uL (3.5-6.1); RED CELL DISTRIBUTION WIDTH 13.4 % (11.5-14.5); WHITE BLOOD COUNT 6.7 10^3/ul (4.5-11.0)
[2017-04-17 08:06] LABS: ALT/SGPT 75 U/L (7-56); AST/SGOT 58 U/L (17-59); BLOOD UREA NITROGEN 11 mg/dL (7-21); GFR AFRICAN-AMERICAN > 60; GFR NON-AFRICAN AMERICAN > 60
[2017-04-17] MEDS: Insulin Lispro (humaLOG) MEDIUM Coverage SC SCH ×4 (09:54→22:56)
[2017-04-17 10:29] LABS: BARBITURATES, UR NEGATIVE (NEGATIVE); BENZODIAZEPINES, UR NEGATIVE (NEGATIVE); OPIATES, UR NEGATIVE (NEGATIVE); PHENCYCLIDINE, UR NEGATIVE (NEGATIVE)
[2017-04-17 11:39] LABS: CK-MB 1.8 ng/mL (0.0-3.6)
[2017-04-17 11:57] LABS: ARTERIAL BLOOD GAS HCO3 26.3 mmol/L (21-28); ARTERIAL BLOOD GAS O2 SAT 98.3 % (95-98); ARTERIAL BLOOD GAS PCO2 37 mm/Hg (35-45); ARTERIAL BLOOD GAS PH 7.46 (7.35-7.45); ARTERIAL BLOOD GAS TCO2 27.4 mmol.L (22-28)
--- NOTE | 2017-04-17 12:10 | RAD ---
HISTORY: Shortness of breath COMPARISON: 04/15/2017. FINDINGS: LUNGS: Right upper lobe, perihilar infiltrate a new finding compared to the prior study. PLEURA: No significant pleural effusion identified, no pneumothorax apparent. CARDIOVASCULAR: No radiographic findings to suggest acute or significant cardiovascular disease. OSSEOUS STRUCTURES: No significant abnormalities. VISUALIZED UPPER ABDOMEN: Normal. OTHER FINDINGS: None. IMPRESSION: New right upper lobe infiltrate, pneumonia suspected.
[2017-04-17] MEDS ORDERED: Sodium Chloride 0.9% 1,000 ML IV SCH (13:45)
--- NOTE | 2017-04-17 13:55 | CP.PCM.PN ---
<Edilson Barton - Last Filed: 04/17/17 13:48> Subjective - Date & Time of Evaluation Date of Evaluation: 04/17/17 Time of Evaluation: 13:48 - Subjective Subjective: Medicine Progress Note: Patient seen and assessed at bedside. Patient hypoxic overnight with increased cough and required additional supplemental oxygen and breathing treatment with improvement after these interventions. He was also noted to have a fever this morning that required tylenol. Patient currently complaining of increased sweating and feeling weak. He denies chest pain, palpitations, SOB, abdominal pain, N/V/D/C, urinary symptoms, or any numbness/tingling of any extremity. Objective - Vital Signs/Intake and Output Vital Signs (last 24 hours): Temp Pulse Resp BP Pulse Ox 101.3 F H 84 20 123/70 95 04/17/17 12:01 04/17/17 12:00 04/17/17 12:00 04/17/17 12:00 04/17/17 06:00 Intake and Output: 04/17/17 04/17/17 06:59 18:59 Intake Total 2660 Output Total 3300 Balance -640 - Medications Medications: Current Medications Acetaminophen (Tylenol 325mg Tab) 650 mg PO Q4 PRN PRN Reason: Fever >100.4 F Last Admin: 04/17/17 12:01 Dose: 650 mg Albuterol/Ipratropium (Duoneb 3 Mg/0.5 Mg (3 Ml) Ud) 3 ml IH [id number] GALE Last Admin: 04/17/17 11:37 Dose: 3 ml Guaifenesin (Robitussin) 100 mg PO Q4H PRN PRN Reason: Cough Last Admin: 04/17/17 02:29 Dose: 100 mg Heparin Sodium (Porcine) (Heparin) 5,000 units SC Q12 [facility] PRN Reason: Protocol Last Admin: 04/17/17 09:55 Dose: 5,000 units Ampicillin Sodium/Sulbactam (Sodium 3 gm/ Sodium Chloride) 100 mls @ 200 mls/ hr IVPB Q6 [facility] PRN Reason: Protocol Last Admin: 04/17/17 12:02 Dose: 200 mls/hr Sodium Chloride (Sodium Chloride 0.9%) 1,000 mls @ 100 mls/hr IV .Q10H [facility] Insulin Human Lispro (Humalog Med) 0 units SC ACHS G[facility] PRN Reason: Protocol Last Admin: 04/17/17 12:02 Dose: Not Given Pantoprazole Sodium (Protonix Inj) 40 mg IVP DAILY [facility] Last Admin: 04/17/17 09:54 Dose: 40 mg - Labs Labs: 04/17/17 07:00 04/17/17 07:00 PT 11.7 SECONDS (9.4-12.5) 04/15/17 19:00 INR 1.03 (0.93-1.08) 04/15/17 19:00 APTT 22.0 Seconds (25.1-36.5) L 04/15/17 19:00 - Constitutional Appears: In Acute Distress - Head Exam Head Exam: ATRAUMATIC, NORMAL INSPECTION, NORMOCEPHALIC - Eye Exam Eye Exam: EOMI, Normal appearance, PERRL - ENT Exam ENT Exam: Mucous Membranes Moist, Normal Exam - Neck Exam Neck Exam: Full ROM, Normal Inspection. absent: Lymphadenopathy - Respiratory Exam Respiratory Exam: Decreased Breath Sounds, Rhonchi (Trace; upper lung singh), NORMAL BREATHING PATTERN. absent: Accessory Muscle Use, Chest Wall Tenderness, Clear to Ausculation Bilateral, Prolonged Expiratory Phase, Rales, Wheezes, Respiratory Distress, Stridor - Cardiovascular Exam Cardiovascular Exam: REGULAR RHYTHM, RRR, +S1, +S2 - GI/Abdominal Exam GI & Abdominal Exam: Soft, Normal Bowel Sounds. absent: Tenderness - Extremities Exam Extremities Exam: Full ROM, Normal Capillary Refill, Normal Inspection. absent : Calf Tenderness, Joint Swelling, Pedal Edema, Tenderness - Back Exam Back Exam: NORMAL INSPECTION - Neurological Exam Neurological Exam: Alert, Awake, CN II-XII Intact, Normal Gait, Oriented x3 - Psychiatric Exam Psychiatric exam: Normal Affect, Normal Mood - Skin Skin Exam: Dry, Intact, Normal Color, Warm Assessment and Plan - Assessment and Plan (Free Text) Assessment: 36 year old male with a past medical history significant for heroin abuse who was brought in by ambulance after being found unconscious by his fiance at home s/p heroine use. Patient hypoxic overnight, requiring additional supplemental oxygen and breathing treatments, and was found to have a new RUL infiltrate suspicious for pneumonia on chest x-ray. Plan: 1. Heroin Abuse s/p Heroin Overdose -EKG showing NSR at 78bpm -Repeat ABG showing CO2, O2, pH and lactate within normal limits -UDS negative -Hepatitis C AB reactive, Viral RNA pending -HIV pending -Continue Neurochecks -Aspiration, Fall and Seizure precautions -ID consulted, all recommendations appreciated 2. RUL Infiltrate suspicious for Pneumonia -Chest X-Ray showing RUL infiltrate suspicious for pneumonia -Patient noted to have fevers and tachycardia but without leukocytosis or tachypnea; Lactate within normal limits -Echo pending -Continue Unasyn for empiric coverage of aspiration pneumonia -Continue Duonebs Q4H -Continue Robitussin Q4H -Continue Tylenol PRN for fever -Continue supplemental oxygen via NRB PRN -ID consulted, all recommendations appreciated 3. Rhabdomyolysis -CK trending down and currently 1127 -Liver Enzymes and BUN/Cr trending down -Continue NS at 100mls/hr 4. Hyperglycemia -SSI-Med and Accuchecks ACHS GI Prophylaxis: Protonix DVT Prophylaxis: Heparin Patient seen and case discussed with attending, Dr. Giraldo. <Isabel Giraldo - Last Filed: 04/17/17 15:35> Objective - Vital Signs/Intake and Output Vital Signs (last 24 hours): Temp Pulse Resp BP Pulse Ox 99.3 F 84 20 123/70 95 04/17/17 13:01 04/17/17 12:00 04/17/17 12:00 04/17/17 12:00 04/17/17 06:00 Intake and Output: 04/17/17 04/17/17 06:59 18:59 Intake Total 2660 Output Total 3300 Balance -640 - Medications Medications: Current Medications Acetaminophen (Tylenol 325mg Tab) 650 mg PO Q4 PRN PRN Reason: Fever >100.4 F Last Admin: 04/17/17 12:01 Dose: 650 mg Albuterol/Ipratropium (Duoneb 3 Mg/0.5 Mg (3 Ml) Ud) 3 ml IH [id number] GALE Last Admin: 04/17/17 11:37 Dose: 3 ml Guaifenesin (Robitussin) 100 mg PO Q4H PRN PRN Reason: Cough Last Admin: 04/17/17 02:29 Dose: 100 mg Heparin Sodium (Porcine) (Heparin) 5,000 units SC Q12 [facility]ALE PRN Reason: Protocol Last Admin: 04/17/17 09:55 Dose: 5,000 units Ampicillin Sodium/Sulbactam (Sodium 3 gm/ Sodium Chloride) 100 mls @ 200 mls/ hr IVPB Q6 [facility] PRN Reason: Protocol Last Admin: 04/17/17 12:02 Dose: 200 mls/hr Sodium Chloride (Sodium Chloride 0.9%) 1,000 mls @ 100 mls/hr IV .Q10H [facility] Last Admin: 04/17/17 14:30 Dose: 100 mls/hr Insulin Human Lispro (Humalog Med) 0 units SC ACHS [facility] PRN Reason: Protocol Last Admin: 04/17/17 12:02 Dose: Not Given Pantoprazole Sodium (Protonix Inj) 40 mg IVP DAILY [facility] Last Admin: 04/17/17 09:54 Dose: 40 mg - Labs Labs: 04/17/17 07:00 04/17/17 07:00 PT 11.7 SECONDS (9.4-12.5) 04/15/17 19:00 INR 1.03 (0.93-1.08) 04/15/17 19:00 APTT 22.0 Seconds (25.1-36.5) L 04/15/17 19:00 Attending/Attestation - Attestation I have personally seen and examined this patient.: Yes I have fully participated in the care of the patient.: Yes I have reviewed all pertinent clinical information, including history, physical exam and plan: Yes Notes (Text): 04/17/17 15:32 Patient was seen and examined with medical review specialist. 36 year old male with past medical history of drug abuse brought in by ambulance after being found unconscious by his fiance at home s/p heroine use. Mental status improved after Narcain.Patient is found to have Rhabdomylosis, fever likely due to aspiration Pneumonia and abnormal LFT, hepatitis panel is positive for hepatitric C.CK level is coming down.Renal functions are stable. Hypoxia is improved.Patient is still having low grade fever.We will continue IV antibiotics. Cultures are negative for any growth. X rays showed aspiraion Pneumonia.ID evaluation is appreciated. Continue watching for withdrawal symptoms. Prognosis is guarded.
--- NOTE | 2017-04-17 18:31 | CP.PCM.PN ---
Subjective - Date & Time of Evaluation Date of Evaluation: 04/17/17 Time of Evaluation: 18:25 - Subjective Subjective: Infectious Disease Follow Up: April 17, 2017 36 yo male with history of heroin abuse. At home the patient's fiance heard a loud thud from the bedroom and was found unresponsive and slumped over a space between the bed and the dresser. EMS administered Narcan in the field. Urine drug screen negative but taken 48 hours after admission. Still febrile with 101.3 F. Objective - Vital Signs/Intake and Output Vital Signs (last 24 hours): Temp Pulse Resp BP Pulse Ox 99 F 82 17 142/63 100 04/17/17 18:00 04/17/17 18:00 04/17/17 18:00 04/17/17 18:00 04/17/17 18:00 Intake and Output: 04/17/17 04/17/17 06:59 18:59 Intake Total 2660 Output Total 3300 Balance -640 - Medications Medications: Current Medications Acetaminophen (Tylenol 325mg Tab) 650 mg PO Q4 PRN PRN Reason: Fever >100.4 F Last Admin: 04/17/17 12:01 Dose: 650 mg Albuterol/Ipratropium (Duoneb 3 Mg/0.5 Mg (3 Ml) Ud) 3 ml IH [id number] [facility] Last Admin: 04/17/17 15:39 Dose: 3 ml Guaifenesin (Robitussin) 100 mg PO Q4H PRN PRN Reason: Cough Last Admin: 04/17/17 02:29 Dose: 100 mg Heparin Sodium (Porcine) (Heparin) 5,000 units SC Q12 [facility] PRN Reason: Protocol Last Admin: 04/17/17 09:55 Dose: 5,000 units Ampicillin Sodium/Sulbactam (Sodium 3 gm/ Sodium Chloride) 100 mls @ 200 mls/ hr IVPB Q6 [facility] PRN Reason: Protocol Last Admin: 04/17/17 17:28 Dose: 200 mls/hr Sodium Chloride (Sodium Chloride 0.9%) 1,000 mls @ 100 mls/hr IV .Q10H [facility] Last Admin: 04/17/17 14:30 Dose: 100 mls/hr Insulin Human Lispro (Humalog Med) 0 units SC ACHS [facility] PRN Reason: Protocol Last Admin: 04/17/17 17:12 Dose: Not Given Pantoprazole Sodium (Protonix Inj) 40 mg IVP DAILY [facility] Last Admin: 04/17/17 09:54 Dose: 40 mg - Labs Labs: 04/17/17 07:00 04/17/17 07:00 PT 11.7 SECONDS (9.4-12.5) 04/15/17 19:00 INR 1.03 (0.93-1.08) 04/15/17 19:00 APTT 22.0 Seconds (25.1-36.5) L 04/15/17 19:00 - Constitutional Appears: No Acute Distress - Head Exam Head Exam: ATRAUMATIC, NORMOCEPHALIC - Eye Exam Eye Exam: EOMI, PERRL Pupil Exam: NORMAL ACCOMODATION, PERRL - ENT Exam ENT Exam: Mucous Membranes Moist, Normal External Ear Exam, TM's Normal Bilaterally - Neck Exam Neck Exam: Full ROM, Normal Inspection - Respiratory Exam Respiratory Exam: Decreased Breath Sounds, Wheezes. absent: Rales, Rhonchi - Cardiovascular Exam Cardiovascular Exam: REGULAR RHYTHM, RRR, +S1, +S2 - GI/Abdominal Exam GI & Abdominal Exam: Soft, Normal Bowel Sounds. absent: Distended, Tenderness - Extremities Exam Extremities Exam: Full ROM, Normal Inspection - Neurological Exam Neurological Exam: Alert, Awake, CN II-XII Intact, Oriented x3 - Psychiatric Exam Psychiatric exam: Normal Affect, Normal Mood Assessment and Plan - Assessment and Plan (Free Text) Assessment: 36 yo male with AMS after heroin use at home. Some improvement with Narcan administration. Hepatitis C antibody positive. Urine drug screen pending. Screen for HIV and Hepatitis C Quantitative. Fevers on admission. Unclear origin... may be from drug use and possible withdrawal. Supportive care. On Unasyn for antibiotic coverage which is acceptable. If fevers, persist will consider upgrading Unasyn to Zosyn and adding Vancomycin. Chest X-ray suggestive of aspiration pneumonia with RLL infiltrate. Thank you for allowing me to participate in the care of the patient, we will follow with you.
[2017-04-18] MEDS: Albuterol-Ipratrop 3 mg / 0.5 (3 ml) UD IH SCH ×3 (00:55→07:41)
[2017-04-18] MEDS: guaiFENesin 100 mg/5 ml Syrup UD PO PRN ×2 (04:53→10:36)
[2017-04-18] MEDS ORDERED: Pantoprazole 40 mg EC Tab PO SCH (06:00)
[2017-04-18 06:22] VITALS: BP 131/74; RESP 18; TEMP 98.3; O2SAT 100
[2017-04-18 06:40] LABS: BASO # 0.01 K/mm3 (0.0-2.0); BASO % 0.3 % (0.0-3.0); EOS # 0.1 (0.0-0.7); EOS % 1.5 % (1.5-5.0); GRAN # 2.91 (1.4-6.5); GRAN % 74.2 % (50.0-68.0); HEMOGLOBIN 12.2 g/dL (14.0-18.0); LYMPH # 0.5 (1.2-3.4); LYMPH % 13.8 % (22.0-35.0); MEAN CELL VOLUME 92.2 fl (80.0-105.0); MEAN CORPUSCULAR HEMOGLOBIN 30.6 pg (25.0-35.0); MEAN CORPUSCULAR HGB CONC 33.2 g/dl (31.0-37.0); MEAN PLATELET VOLUME 10.2 fl (7.0-11.0); MONO # 0.4 (0.1-0.6); MONO % 10.2 % (1.0-6.0); RBC 3.99 10^6/uL (3.5-6.1); RED CELL DISTRIBUTION WIDTH 12.8 % (11.5-14.5); WHITE BLOOD COUNT 3.9 10^3/ul (4.5-11.0)
[2017-04-18 06:57] LABS: ALBUMIN 3.2 g/dL (3.0-4.8); ALT/SGPT 70 U/L (7-56); AST/SGOT 49 U/L (17-59); BLOOD UREA NITROGEN 6 mg/dL (7-21); CALCIUM 8.5 mg/dL (8.4-10.5); GFR AFRICAN-AMERICAN > 60; GFR NON-AFRICAN AMERICAN > 60
[2017-04-18] MEDS: Insulin Lispro (humaLOG) MEDIUM Coverage SC SCH (08:28)
[2017-04-18 08:51] LABS: CK-MB 1.1 ng/mL (0.0-3.6)
[2017-04-18 10:12] VITALS: PULSE 115
--- NOTE | 2017-04-18 12:39 | CP.PCM.DIS ---
<Edilson Barton - Last Filed: 04/18/17 18:32> Provider - Provider Date of Admission: 04/15/17 20:36 Attending physician: Elias Lewis MD Primary care physician: NO PRIMARY CARE PROVIDER Consults: ID: Go Time Spent in preparation of Discharge (in minutes): 47 Hospital Course - Lab Results Lab Results: Micro Results 04/15/17 21:50 Urine Urine Culture - Final No Growth (<1,000 CFU/ML) Most Recent Lab Values WBC 3.9 10^3/ul (4.5-11.0) L D 04/18/17 06:00 RBC 3.99 10^6/uL (3.5-6.1) 04/18/17 06:00 Hgb 12.2 g/dL (14.0-18.0) L 04/18/17 06:00 Hct 36.8 % (42.0-52.0) L 04/18/17 06:00 MCV 92.2 fl (80.0-105.0) 04/18/17 06:00 MCH 30.6 pg (25.0-35.0) 04/18/17 06:00 MCHC 33.2 g/dl (31.0-37.0) 04/18/17 06:00 RDW 12.8 % (11.5-14.5) 04/18/17 06:00 Plt Count 115 10^3/uL (120.0-450.0) L 04/18/17 06:00 MPV 10.2 fl (7.0-11.0) 04/18/17 06:00 Gran % 74.2 % (50.0-68.0) H 04/18/17 06:00 Lymph % (Auto) 13.8 % (22.0-35.0) L 04/18/17 06:00 [place] % (Auto) 10.2 % (1.0-6.0) H 04/18/17 06:00 Eos % (Auto) 1.5 % (1.5-5.0) 04/18/17 06:00 Baso % (Auto) 0.3 % (0.0-3.0) 04/18/17 06:00 Gran # 2.91 (1.4-6.5) 04/18/17 06:00 Lymph # (Auto) 0.5 (1.2-3.4) L 04/18/17 06:00 [place] # (Auto) 0.4 (0.1-0.6) 04/18/17 06:00 Eos # (Auto) 0.1 (0.0-0.7) 04/18/17 06:00 Baso # (Auto) 0.01 K/mm3 (0.0-2.0) 04/18/17 06:00 PT 11.7 SECONDS (9.4-12.5) 04/15/17 19:00 INR 1.03 (0.93-1.08) 04/15/17 19:00 APTT 22.0 Seconds (25.1-36.5) L 04/15/17 19:00 pCO2 37 mm/Hg (35-45) 04/17/17 11:45 pO2 84.0 mm/Hg (80-100) 04/17/17 11:45 HCO3 26.3 mmol/L (21-28) 04/17/17 11:45 ABG pH 7.46 (7.35-7.45) H 04/17/17 11:45 ABG Total CO2 27.4 mmol.L (22-28) 04/17/17 11:45 ABG O2 Saturation 98.3 % (95-98) H 04/17/17 11:45 ABG Base Excess 2.5 mmol/L (-2.0-3.0) 04/17/17 11:45 ABG Potassium 3.3 mmol/L (3.6-5.2) L 04/17/17 11:45 Sodium 137.0 mmol/L (132-148) 04/17/17 11:45 Chloride 105.0 mmol/L (98-107) 04/17/17 11:45 Glucose 124 mg/dl (75-110) H 04/17/17 11:45 Lactate 1.5 mmol/L (0.7-2.1) 04/17/17 11:45 FiO2 100.0 % 04/17/17 11:45 Sodium 139 mmol/L (132-148) 04/18/17 06:00 Potassium 3.6 mmol/L (3.6-5.0) 04/18/17 06:00 Chloride 102 mmol/L (98-107) 04/18/17 06:00 Carbon Dioxide 28 mmol/L (21-33) 04/18/17 06:00 Anion Gap 12 (10-20) 04/18/17 06:00 BUN 6 mg/dL (7-21) L 04/18/17 06:00 Creatinine 0.8 mg/dl (0.8-1.5) 04/18/17 06:00 Est GFR ( Amer) > 60 04/18/17 06:00 Est GFR (Non-Af Amer) > 60 04/18/17 06:00 POC Glucose (mg/dL) 114 mg/dL (65-110) H 04/18/17 07:53 Random Glucose 117 mg/dL (70-110) H 04/18/17 06:00 Calcium 8.5 mg/dL (8.4-10.5) 04/18/17 06:00 Phosphorus 7.5 mg/dL (2.5-4.5) H 04/15/17 19:00 Magnesium 2.5 mg/dL (1.7-2.2) H 04/15/17 19:00 Total Bilirubin 0.7 mg/dL (0.2-1.3) 04/18/17 06:00 AST 49 U/L (17-59) 04/18/17 06:00 ALT 70 U/L (7-56) H 04/18/17 06:00 Alkaline Phosphatase 42 U/L (38-126) 04/18/17 06:00 Lactate Dehydrogenase 802 U/L (333-699) H 04/15/17 19:00 Total Creatine Kinase 564 U/L (35-230) H 04/18/17 08:25 CK-MB (CK-2) 1.1 ng/mL (0.0-3.6) 04/18/17 08:25 CK-MB (CK-2) % 0.2 % (2.5-3.0) L 04/15/17 19:00 Troponin I < 0.01 ng/mL 04/15/17 19:00 Total Protein 6.5 g/dL (5.8-8.3) 04/18/17 06:00 Albumin 3.2 g/dL (3.0-4.8) 04/18/17 06:00 Globulin 3.3 gm/dL 04/18/17 06:00 Albumin/Globulin Ratio 1.0 (1.1-1.8) L 04/18/17 06:00 Procalcitonin 0.18 NG/ML (0.19-0.49) L 04/16/17 07:00 Arterial Blood Potassium 3.3 mmol/L (3.6-5.2) L 04/17/17 11:45 Urine Color Yellow (YELLOW) 04/15/17 21:50 Urine Appearance Clear (CLEAR) 04/15/17 21:50 Urine pH 6.0 (4.7-8.0) 04/15/17 21:50 Ur Specific [place] 1.025 (1.005-1.035) 04/15/17 21:50 Urine Protein 30 mg/dL (<30 mg/dL) H 04/15/17 21:50 Urine Glucose (UA) 250 mg/dL (NEGATIVE) H 04/15/17 21:50 Urine Ketones Trace mg/dL (NEGATIVE) H 04/15/17 21:50 Urine Blood Negative (NEGATIVE) 04/15/17 21:50 Urine Nitrate Negative (NEGATIVE) 04/15/17 21:50 Urine Bilirubin Negative (NEGATIVE) 04/15/17 21:50 Urine Urobilinogen 0.2 E.U./dL (<1 E.U./dL) 04/15/17 21:50 Ur Leukocyte Esterase Negative Suha/uL (NEGATIVE) 04/15/17 21:50 Urine RBC 0 - 2 /hpf (0-2) 04/15/17 21:50 Urine WBC 2 - 5 /hpf (0-6) 04/15/17 21:50 Ur Epithelial Cells 1 - 3 /hpf (0-5) 04/15/17 21:50 Urine Bacteria Many (NEG) 04/15/17 21:50 Salicylates < 1 mg/dL (2.0-20.0) L 04/15/17 19:00 Urine Opiates Screen Negative (NEGATIVE) 04/17/17 10:03 Urine Methadone Screen Negative (NEGATIVE) 04/17/17 10:03 Acetaminophen < 10.0 ug/ml (10.0-20.0) L 04/15/17 19:00 Ur Barbiturates Screen Negative (NEGATIVE) 04/17/17 10:03 Ur Phencyclidine Scrn Negative (NEGATIVE) 04/17/17 10:03 Ur Amphetamines Screen Negative (NEGATIVE) 04/17/17 10:03 U Benzodiazepines Scrn Negative (NEGATIVE) 04/17/17 10:03 U Oth Cocaine Metabols Negative (NEGATIVE) 04/17/17 10:03 U Cannabinoids Screen Negative (NEGATIVE) 04/17/17 10:03 Alcohol, Quantitative < 10 mg/dL (0-10) 04/15/17 19:00 Hepatitis A IgM Ab Negative (NEGATIVE) 04/15/17 22:37 Hep Bs Antigen Negative (NEGATIVE) 04/15/17 22:37 Hep B Core IgM Ab Negative (NEGATIVE) 04/15/17 22:37 Hepatitis C Antibody Reactive (NEGATIVE) 04/15/17 22:37 Influenza Typ A,B (EIA) Negative for flu a/b (NEGATIVE) 04/15/17 19:04 - Hospital Course Hospital Course: 36 year old male with a past medical history significant for heroin abuse who was brought in by ambulance after being found unconscious by his fiance at home s/p heroine use. Initial chest x-ray was normal and EKG showed sinus tachycardia. An ABG was done and showed normal O2, CO2 and pH. UDS was negative. Unasyn was started for aspiration pneumonia prophylaxis. Liver enzymes were elevated on admission and a hepatitis panel showed reactive AB's to Hepatitis C, with viral load pending. Patient reported that he is aware of this and was treated for this ~10 years ago for 6 months but stopped following up. Patient was tachycardic, hypoxic and diaphoretic overnight while inpatient. A new chest X-Ray showed RUL infiltrate suspicious for pneumonia and patient noted to have fevers and tachycardia but without leukocytosis or tachypnea with lactate within normal limits. ID was consulted and recommended Vanc and Zosyn should fevers persist. Patient was started on Duonebs, Robitussin, Tylenol PRN and supplemental oxygen. He was found to be hyperglycemic and SSI-low was started. He was also in rhabdomyolysis and NS at 200mls/hr were started and CK trended down. Protonix and heparin were started for prophylaxis. Patient decided to leave AMA on 04/18/17. Patient was explained in depth the benefits of remaining inpatient for treatment and the risks of leaving before medically optimized. Patient verbally understood and still decided to sign out AMA. Patient was noted to be alert and oriented to person, place, time and event and ambulated without assistance or difficulty. Patient was given a written prescription for Levaquin for 7 days for CAP and agreed to complete this course. He was instructed to follow up [place] [facility] [place] [facility] [place] card to call for appointment. He was also instructed to stop using heroine on multiple occasions by multiple members of healthcare team with patient verbalizing understanding of risks of continued use and benefits of quitting. - Date & Time of H&P Date of H&P: 04/15/17 Time of H&P: 21:44 Discharge Exam - Head Exam Head Exam: ATRAUMATIC, NORMAL INSPECTION, NORMOCEPHALIC - Eye Exam Eye Exam: EOMI, Normal appearance, PERRL - ENT Exam ENT Exam: Mucous Membranes Moist, Normal Exam - Neck Exam Neck exam: Full Rom, Normal Inspection - Respiratory Exam Respiratory Exam: Rhonchi (Trace; Upper lung singh), NORMAL BREATHING PATTERN. absent: Clear to PA & Lateral, UNREMARKABLE - Cardiovascular Exam Cardiovascular Exam: REGULAR RHYTHM, RRR, +S1, +S2 - GI/Abdominal Exam GI & Abdominal Exam: Normal Bowel Sounds, Soft, Unremarkable. absent: Tenderness - Extremities Exam Extremities exam: full ROM, normal capillary refill, pedal pulses present - Neurological Exam Neurological exam: Alert, Normal Gait, Oriented x3 - Psychiatric Exam Psychiatric exam: Normal Affect, Normal Mood - Skin Skin Exam: Dry, Intact, Normal Color, Warm Discharge Plan - Follow Up Plan Condition: GOOD Disposition: AGAINST MEDICAL ADVICE Referrals: PCP,KAREN [Primary Care Provider] - <Elias Lewis - Last Filed: 04/19/17 07:36> Provider - Provider Date of Admission: 04/15/17 20:36 Attending physician: Elias Lewis MD Primary care physician: KAREN PRIMARY CARE PROVIDER Hospital Course - Lab Results Lab Results: Micro Results 04/15/17 21:50 Urine Urine Culture - Final No Growth (<1,000 CFU/ML) Most Recent Lab Values WBC 3.9 10^3/ul (4.5-11.0) L D 04/18/17 06:00 RBC 3.99 10^6/uL (3.5-6.1) 04/18/17 06:00 Hgb 12.2 g/dL (14.0-18.0) L 04/18/17 06:00 Hct 36.8 % (42.0-52.0) L 04/18/17 06:00 MCV 92.2 fl (80.0-105.0) 04/18/17 06:00 MCH 30.6 pg (25.0-35.0) 04/18/17 06:00 MCHC 33.2 g/dl (31.0-37.0) 04/18/17 06:00 RDW 12.8 % (11.5-14.5) 04/18/17 06:00 Plt Count 115 10^3/uL (120.0-450.0) L 04/18/17 06:00 MPV 10.2 fl (7.0-11.0) 04/18/17 06:00 Gran % 74.2 % (50.0-68.0) H 04/18/17 06:00 Lymph % (Auto) 13.8 % (22.0-35.0) L 04/18/17 06:00 [place] % (Auto) 10.2 % (1.0-6.0) H 04/18/17 06:00 Eos % (Auto) 1.5 % (1.5-5.0) 04/18/17 06:00 Baso % (Auto) 0.3 % (0.0-3.0) 04/18/17 06:00 Gran # 2.91 (1.4-6.5) 04/18/17 06:00 Lymph # (Auto) 0.5 (1.2-3.4) L 04/18/17 06:00 [place] # (Auto) 0.4 (0.1-0.6) 04/18/17 06:00 Eos # (Auto) 0.1 (0.0-0.7) 04/18/17 06:00 Baso # (Auto) 0.01 K/mm3 (0.0-2.0) 04/18/17 06:00 PT 11.7 SECONDS (9.4-12.5) 04/15/17 19:00 INR 1.03 (0.93-1.08) 04/15/17 19:00 APTT 22.0 Seconds (25.1-36.5) L 04/15/17 19:00 pCO2 37 mm/Hg (35-45) 04/17/17 11:45 pO2 84.0 mm/Hg (80-100) 04/17/17 11:45 HCO3 26.3 mmol/L (21-28) 04/17/17 11:45 ABG pH 7.46 (7.35-7.45) H 04/17/17 11:45 ABG Total CO2 27.4 mmol.L (22-28) 04/17/17 11:45 ABG O2 Saturation 98.3 % (95-98) H 04/17/17 11:45 ABG Base Excess 2.5 mmol/L (-2.0-3.0) 04/17/17 11:45 ABG Potassium 3.3 mmol/L (3.6-5.2) L 04/17/17 11:45 Sodium 137.0 mmol/L (132-148) 04/17/17 11:45 Chloride 105.0 mmol/L (98-107) 04/17/17 11:45 Glucose 124 mg/dl (75-110) H 04/17/17 11:45 Lactate 1.5 mmol/L (0.7-2.1) 04/17/17 11:45 FiO2 100.0 % 04/17/17 11:45 Sodium 139 mmol/L (132-148) 04/18/17 06:00 Potassium 3.6 mmol/L (3.6-5.0) 04/18/17 06:00 Chloride 102 mmol/L (98-107) 04/18/17 06:00 Carbon Dioxide 28 mmol/L (21-33) 04/18/17 06:00 Anion Gap 12 (10-20) 04/18/17 06:00 BUN 6 mg/dL (7-21) L 04/18/17 06:00 Creatinine 0.8 mg/dl (0.8-1.5) 04/18/17 06:00 Est GFR ( Amer) > 60 04/18/17 06:00 Est GFR (Non-Af Amer) > 60 04/18/17 06:00 POC Glucose (mg/dL) 114 mg/dL (65-110) H 04/18/17 07:53 Random Glucose 117 mg/dL (70-110) H 04/18/17 06:00 Calcium 8.5 mg/dL (8.4-10.5) 04/18/17 06:00 Phosphorus 7.5 mg/dL (2.5-4.5) H 04/15/17 19:00 Magnesium 2.5 mg/dL (1.7-2.2) H 04/15/17 19:00 Total Bilirubin 0.7 mg/dL (0.2-1.3) 04/18/17 06:00 AST 49 U/L (17-59) 04/18/17 06:00 ALT 70 U/L (7-56) H 04/18/17 06:00 Alkaline Phosphatase 42 U/L (38-126) 04/18/17 06:00 Lactate Dehydrogenase 802 U/L (333-699) H 04/15/17 19:00 Total Creatine Kinase 564 U/L (35-230) H 04/18/17 08:25 CK-MB (CK-2) 1.1 ng/mL (0.0-3.6) 04/18/17 08:25 CK-MB (CK-2) % 0.2 % (2.5-3.0) L 04/15/17 19:00 Troponin I < 0.01 ng/mL 04/15/17 19:00 Total Protein 6.5 g/dL (5.8-8.3) 04/18/17 06:00 Albumin 3.2 g/dL (3.0-4.8) 04/18/17 06:00 Globulin 3.3 gm/dL 04/18/17 06:00 Albumin/Globulin Ratio 1.0 (1.1-1.8) L 04/18/17 06:00 Procalcitonin 0.18 NG/ML (0.19-0.49) L 04/16/17 07:00 Arterial Blood Potassium 3.3 mmol/L (3.6-5.2) L 04/17/17 11:45 Urine Color Yellow (YELLOW) 04/15/17 21:50 Urine Appearance Clear (CLEAR) 04/15/17 21:50 Urine pH 6.0 (4.7-8.0) 04/15/17 21:50 Ur Specific [place] 1.025 (1.005-1.035) 04/15/17 21:50 Urine Protein 30 mg/dL (<30 mg/dL) H 04/15/17 21:50 Urine Glucose (UA) 250 mg/dL (NEGATIVE) H 04/15/17 21:50 Urine Ketones Trace mg/dL (NEGATIVE) H 04/15/17 21:50 Urine Blood Negative (NEGATIVE) 04/15/17 21:50 Urine Nitrate Negative (NEGATIVE) 04/15/17 21:50 Urine Bilirubin Negative (NEGATIVE) 04/15/17 21:50 Urine Urobilinogen 0.2 E.U./dL (<1 E.U./dL) 04/15/17 21:50 Ur Leukocyte Esterase Negative Suha/uL (NEGATIVE) 04/15/17 21:50 Urine RBC 0 - 2 /hpf (0-2) 04/15/17 21:50 Urine WBC 2 - 5 /hpf (0-6) 04/15/17 21:50 Ur Epithelial Cells 1 - 3 /hpf (0-5) 04/15/17 21:50 Urine Bacteria Many (NEG) 04/15/17 21:50 Salicylates < 1 mg/dL (2.0-20.0) L 04/15/17 19:00 Urine Opiates Screen Negative (NEGATIVE) 04/17/17 10:03 Urine Methadone Screen Negative (NEGATIVE) 04/17/17 10:03 Acetaminophen < 10.0 ug/ml (10.0-20.0) L 04/15/17 19:00 Ur Barbiturates Screen Negative (NEGATIVE) 04/17/17 10:03 Ur Phencyclidine Scrn Negative (NEGATIVE) 04/17/17 10:03 Ur Amphetamines Screen Negative (NEGATIVE) 04/17/17 10:03 U Benzodiazepines Scrn Negative (NEGATIVE) 04/17/17 10:03 U Oth Cocaine Metabols Negative (NEGATIVE) 04/17/17 10:03 U Cannabinoids Screen Negative (NEGATIVE) 04/17/17 10:03 Alcohol, Quantitative < 10 mg/dL (0-10) 04/15/17 19:00 Hepatitis A IgM Ab Negative (NEGATIVE) 04/15/17 22:37 Hep Bs Antigen Negative (NEGATIVE) 04/15/17 22:37 Hep B Core IgM Ab Negative (NEGATIVE) 04/15/17 22:37 Hepatitis C Antibody Reactive (NEGATIVE) 04/15/17 22:37 HIV 1&2 Ag/Ab, 4th Gen Nonreactive (Nonreactive) 04/17/17 07:00 Influenza Typ A,B (EIA) Negative for flu a/b (NEGATIVE) 04/15/17 19:04 Attending/Attestation - Attestation I have personally seen and examined this patient.: Yes I have fully participated in the care of the patient.: Yes I have reviewed all pertinent clinical information, including history, physical exam and plan: Yes Notes (Text): 04/18/17 36 year old male with past medical history of substance abuse (heroin) who presented with altered mental status secondary to substance abuse. He was also found to have fever, hypoxia, and dyspnea likely secondary to aspiration pneumonia and started on iv antibiotics. LFTs were elevated and hepatitis panel was positive for hepatitis C. Patient was aware of diagnosis and advised to follow up as outpatient. Patient seen and examined this morning. He is dressed up stating he is ready to go home. He was explained he is on iv antibiotics for pneumonia and risks of signing out AMA. Patient acknowledged understanding and signed out against medical advice. He was counselled on risks of continued substance abuse. Elias Lewis MD Hospitalist.
--- NOTE | 2017-04-19 09:42 | CARD ---
APPROVED REPORT EXAM: Two-dimensional and M-mode echocardiogram with Doppler and color Doppler. Other Information Quality : GoodRhythm : INDICATION Dyspnea 2D DIMENSIONS Left Atrium (2D)4.0 (1.6-4.0cm)IVSd1.0 (0.7-1.1cm) LVDd5.1 (3.9-5.9cm)PWd1.1 (0.7-1.1cm) LVDs3.5 (2.5-4.0cm)FS (%) 31.6 % LVEF (%)59.0 (>50%) M-Mode DIMENSIONS Aortic Root3.20 (2.2-3.7cm)Aortic Cusp Exc.2.10 (1.5-2.0cm) Aortic Valve AoV Peak Duqqfkgd753.0cm/Maria Guadalupe P 1/2 [id number] Mitral Valve MV E Jctxiyza40.8cm/sMV A Ygpohlvt11.4cm/sE/A ratio0.9 TDI Lateral E' Peak V12.80cm/sMedial E' Peak V7.60cm/sE/Lateral E'6.3 E/Medial E'10.6 Pulmonary Valve PV Peak Cgarxvsc36.5cm/sPV Peak Grad.3mmHg Tricuspid Valve TR Peak [id number]/sRAP [id number] Peak Gr.36mmHg [id number] LEFT VENTRICLE The left ventricle is normal size. There is normal left ventricular wall thickness. The left ventricular function is normal. The left ventricular ejection fraction is within the normal range. There is normal LV segmental wall motion. RIGHT VENTRICLE The right ventricle is normal size. ATRIA The right atrium size is normal. The interatrial septum is intact with no evidence for an atrial septal defect. AORTIC VALVE The aortic valve is normal in structure. There is trace aortic regurgitation. MITRAL VALVE The mitral valve is normal in structure. Mitral regurgitation is trace. TRICUSPID VALVE The tricuspid valve is normal in structure. There is trace tricuspid regurgitation. PULMONIC VALVE The pulmonic valve is not well visualized. GREAT VESSELS The aortic root is normal in size. PERICARDIAL EFFUSION There is no pericardial effusion. <Conclusion> The left ventricle is normal size. There is normal left ventricular wall thickness. The left ventricular function is normal.
== END 2017-04-18 11:30 | disposition left against medical advice (07) | DRG 917 ==
LOC: ED 18:46 → ERH 20:36 → 3RSO 04-16 00:27
PROVIDERS: ADMIT Internal Medicine; ATTEND Internal Medicine
DX: T40.1X1A Poisoning by heroin, accidental (unintentional), initial encounter (principal); J69.0 Pneumonitis due to inhalation of food and vomit; M62.82 Rhabdomyolysis; F11.10 Opioid abuse, uncomplicated; R09.02 Hypoxemia; R73.9 Hyperglycemia, unspecified; B19.20 Unspecified viral hepatitis C without hepatic coma

== ENCOUNTER 2017-11-09 22:26 | Emergency (ER) | payer MEDICAID, OTHER ==
[2017-11-09 22:27] VITALS: BMI 33.4
--- NOTE | 2017-11-09 23:54 | ED PDOC ---
Arrival/HPI - General Historian: Patient - History of Present Illness Time/Duration: > month Symptom Onset: Gradual Symptom Course: Intermittent Quality: Fullness Severity Level: Mild Context: Work <Abebe Montemayor - Last Filed: 11/10/17 02:06> <Shekhar Henderson - Last Filed: 11/12/17 11:32> - General Chief Complaint: Groin Pain Time Seen by Provider: 11/09/17 23:15 - History of Present Illness Narrative History of Present Illness (Text): 11/09/17 23:47 36 year old male, past surgical history of right inguinal hernia repair with mesh (2000), presents to the emergency department with left groin pain. Patient states he noticed the left sided hernia over a year ago and it has gotten progressively larger. He has been able to reduce it without difficulty. Occasionally he will experience left sided groin pain with manipulation of the hernia but it subsides once reduced and lying on his back. 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 Lately, it has been affecting his work and sex life which has become a problem for him. He denies difficulty with bowel movements or passing flatus. Patient does endorse delayed voiding. Denies fever, chills, nausea, vomiting, abdominal pain, shortness of breath, chest pain, or palpitations. (Abebe Montemayor) Past Medical History - Provider Review Nursing Documentation Reviewed: Yes - Infectious Disease Hx of Infectious Diseases: None - Cardiac Hx Cardiac Disorders: No - Pulmonary Hx Tuberculosis: No - Neurological HX Cerebrovascular Accident: No Hx Seizures: No - HEENT Hx Epistaxis: No - Renal Hx Kidney Stones: No - Endocrine/Metabolic Hx Hypothyroidism: No - Hematological/Oncological Hx Cancer: No - Integumentary Hx Cellulitis: No Hx Melanoma: No - Musculoskeletal/Rheumatological Hx Falls: No - Gastrointestinal Hx Clostridium Difficile: No Hx Colostomy: No Hx Diarrhea: No - Genitourinary/Gynecological Hx Sexually Transmitted Diseases: No - Psychiatric Hx Depression: No Hx Substance Use: Yes (PCP) - Surgical History Hx Liver Transplant: No Hx Open Heart Surgery: No Hx Thyroidectomy: No - Anesthesia Hx Anesthesia: Yes Hx Anesthesia Reactions: No Hx Malignant Hyperthermia: No <Abebe Montemayor - Last Filed: 11/10/17 02:06> Family/Social History - Physician Review Nursing Documentation Reviewed: Yes Family/Social History: No Known Family HX Smoking Status: Heavy Smoker > 10 Cigarettes Daily Hx Alcohol Use: Yes Frequency of alcohol use: Socially Hx Substance Use: Yes (PCP) Substance used: heroine <Abebe Montemayor - Last Filed: 11/10/17 02:06> Allergies/Home Meds <Abebe Montemayor - Last Filed: 11/10/17 02:06> <BosShekhar long - Last Filed: 11/12/17 11:32> Allergies/Adverse Reactions: Allergies No Known Allergies Allergy (Verified 11/09/17 23:25) Home Medications: Home Meds Medication Instructions Recorded Confirmed No Known Home Med 04/15/17 04/15/17 Methadone [Methadone HCl] 88 mg PO DAILY 06/09/17 11/09/17 Review of Systems - Physician Review All systems were reviewed & negative as marked: Yes - Review of Systems Constitutional: absent: Fevers Respiratory: absent: SOB, Cough Cardiovascular: absent: Chest Pain, Palpitations Gastrointestinal: absent: Abdominal Pain, Constipation, Nausea, Vomiting Genitourinary Male: absent: Dysuria, Hematuria Musculoskeletal: absent: Back Pain Neurological: absent: Headache, Dizziness Endocrine: absent: Diaphoresis <Abebe Montemayor - Last Filed: 11/10/17 02:06> Physical Exam Vital Signs Reviewed: Yes Temperature: Afebrile Blood Pressure: Normal Pulse: Regular Respiratory Rate: Normal Appearance: Positive for: Well-Appearing, Non-Toxic, Comfortable Pain Distress: Mild Mental Status: Positive for: Alert and Oriented X 3 - Systems Exam Head: Present: Atraumatic, Normocephalic Pupils: Present: PERRL Extroacular Muscles: Present: EOMI Respiratory/Chest: Present: Clear to Auscultation, Good Air Exchange. No: Respiratory Distress, Accessory Muscle Use Cardiovascular: Present: Regular Rate and Rhythm, Normal S1, S2. No: Murmurs Abdomen: Present: Hernias (left inguinal ). No: Tenderness, Distention, Peritoneal Signs Genitourinary Male: Present: Hernias. No: Testicle Tenderness, Testicle Swelling Upper Extremity: Present: NORMAL PULSES Lower Extremity: Present: NORMAL PULSES Neurological: Present: Speech Normal, Gait Normal Skin: Present: Warm, Dry Psychiatric: Present: Alert, Oriented x 3 <Abebe Montemayor - Last Filed: 11/10/17 02:06> Vital Signs Temp Pulse Resp BP Pulse Ox 11/10/17 02:17 97.6 F 75 18 140/82 96 11/09/17 23:20 97.7 F 83 17 137/70 97 Medical Decision Making <Abebe Montemayor - Last Filed: 11/10/17 02:06> <Shekhar Henderson - Last Filed: 11/12/17 11:32> ED Course and Treatment: 11/09/17 23:57 36M, presents to the ED with left inguinal hernia. Patient denies any pain at this time. CT Abd/Pel w/o contrasted ordered. 11/10/17 01:44 Surgery resident, Dr. Ishmael muhammad. CT scan pending preliminary read. 11/10/17 01:57 EXAM: CT Abdomen and Pelvis Without Intravenous Contrast CLINICAL HISTORY: 36 years old, male; Pain; Abdominal pain; Localized; Left; Prior surgery; Surgery date: 6+ months; Surgery type: HX surgery for rt inguinal hernia 2000; Additional info: Left inguinal hernia TECHNIQUE: Axial computed tomography images of the abdomen and pelvis without intravenous contrast. All CT scans at this facility use at least one of these dose optimization techniques: automated exposure control; mA and/or kV adjustment per patient size (includes targeted exams where dose is matched to clinical indication); or iterative reconstruction. COMPARISON: No relevant prior studies available. FINDINGS: Lung bases: Unremarkable. No mass. No consolidation. ABDOMEN: Liver: Unremarkable. Gallbladder and bile ducts: Unremarkable. No calcified stones. No ductal dilation. Pancreas: Unremarkable. No ductal dilation. Spleen: Unremarkable. No splenomegaly. Adrenals: Unremarkable. No mass. Kidneys and ureters: Unremarkable. No obstructing stones. No hydronephrosis. Stomach and bowel: Large volume fecal retention throughout the colon and in the distal ileum consistent with constipation. No mucosal thickening. PELVIS: Appendix: Normal appendix. Bladder: Unremarkable. No stones. Reproductive: Unremarkable as visualized. ABDOMEN/PELVIS Intraperitoneal space: Unremarkable. No free air. No significant fluid collection. Bones/joints: No acute fracture. No dislocation. Soft tissues: Left inguinal hernia containing fat. Vasculature: Unremarkable. No abdominal aortic aneurysm. Lymph nodes: Unremarkable. No enlarged lymph nodes. IMPRESSION: 1. Large volume fecal retention throughout the colon and in the distal ileum consistent with constipation. 2. Left inguinal hernia containing fat. 11/10/17 02:06 Surgery resident evaluated patient. At this time patient is stable, hernia is reducible. No signs of incarceration or strangulation. Surgery recommends to follow up with Dr. Melvin in the office. Recommended increased fiber intake secondary to fecal retention. If symptoms worsen, including but not limited to nonreducible hernia and/or increased abdominal pain, please return to the ER. Patient verbalizes understanding and agreement of the treatment plan. Case reviewed and discussed with attending provider. 11/10/17 02:18 (Abebe Montemayor) In agreement with resident note, which includes further HPI details. Patient was seen and evaluated with resident, came up with plan and treatment together. (Shekhar Henderson) - RAD Interpretation Radiology Orders: 11/09/17 23:45 ABDOMEN & PELVIS [ABD & PELVIS W/O PO OR IV CONT] [CT] Stat - PA / METAL FINISHER / Resident Statement / has reviewed & agrees with the documentation as recorded. / has examined the patient and agrees with the treatment plan. <Shekhar Henderson - Last Filed: 11/12/17 11:32> Disposition/Present on Arrival - Present on Arrival Any Indicators Present on Arrival: No History of DVT/PE: No History of Uncontrolled Diabetes: No Urinary Catheter: No History of Decub. Ulcer: No History Surgical Site Infection Following: None - Disposition Have Diagnosis and Disposition been Completed?: Yes Disposition Time: 02:10 Patient Plan: Discharge <Abebe Montemayor - Last Filed: 11/10/17 02:06> <Shekhar Henderson - Last Filed: 11/12/17 11:32> - Disposition Diagnosis: Left inguinal hernia Disposition: HOME/ ROUTINE Condition: GOOD Discharge Instructions (ExitCare): Hernia Repair (DC), Groin Hernia (DC) Additional Instructions: Please follow up with the surgeon Dr. Melvin within 3-5 days. If symptoms worsen, including but not limited to nonreducible hernia, bowel obstruction and/or increased abdominal pain, please return to the emergency room. Referrals: Lalit Melvin MD [Staff Provider] - Follow up with primary Forms: [employer] (Slovenian)
[2017-11-10 02:51] VITALS: BP 140/82; PULSE 75; RESP 18; TEMP 97.6; O2SAT 96
--- NOTE | 2017-11-10 08:55 | CT ---
Date of service: 11/10/2017 PROCEDURE: CT Abdomen and Pelvis without intravenous contrast HISTORY: left inguinal hernia COMPARISON: None. TECHNIQUE: Without contrast. Contrast dose: Radiation dose: Total exam DLP = 530 mGy-cm. This CT exam was performed using one or more of the following dose reduction techniques: Automated exposure control, adjustment of the mA and/or kV according to patient size, and/or use of iterative reconstruction technique. FINDINGS: LOWER THORAX: Unremarkable. LIVER: Unremarkable. No gross lesion or ductal dilatation. GALLBLADDER AND BILE DUCTS: Unremarkable. PANCREAS: Unremarkable. No gross lesion or ductal dilatation. SPLEEN: Unremarkable. ADRENALS: Unremarkable. No mass. KIDNEYS AND URETERS: Unremarkable. No hydronephrosis. No solid mass. VASCULATURE: Unremarkable. No aortic aneurysm. BOWEL: Unremarkable. No obstruction. No gross mural thickening. There is a moderate degree of fecal retention in the colon and terminal ileum consistent with constipation APPENDIX: Unremarkable. Normal appendix. PERITONEUM: Unremarkable. No free fluid. No free air. LYMPH NODES: Unremarkable. No enlarged lymph nodes. BLADDER: Unremarkable. REPRODUCTIVE: Unremarkable. BONES: No acute fracture. OTHER FINDINGS: The report concurs with the preliminary [facility] report IMPRESSION: There is a moderate degree of fecal retention in the colon and terminal ileum consistent with constipation Fat containing left inguinal hernia measuring 26 x 39 mm
== END 2017-11-10 02:17 | disposition home or self-care (01) ==
LOC: ED 22:26
DX: K40.90 Unilateral inguinal hernia, without obstruction or gangrene, not specified as recurrent (principal); F17.210 Nicotine dependence, cigarettes, uncomplicated